=== PATIENT | female | born 1990 | race African-American/Black ===

== ENCOUNTER 2022-08-22 13:12 | Emergency (ER) | payer BC, SELFPAY ==
[2022-08-22 13:19] VITALS: BP 147/78; PULSE 90; RESP 18; TEMP 36.4; O2SAT 96; BMI 43.9
--- NOTE | 2022-08-22 14:54 | ED.EAR ---
HPI - Ear Problem General Time Seen by Provider: 14:54 Date Seen: 08/22/22 Chief complaint: Ear/Nose/Throat Problem Stated complaint: Ear Infections Time Seen by Provider: 08/22/22 14:19 Source: patient, family, RN notes reviewed and old records reviewed Mode of arrival: ambulatory Limitations: no limitations History of Present Illness HPI Narrative: Patient is a very pleasant 31-year-old female who denies who comes to the emergency room with ear pain. Patient had the onset of a cough greater than 5 days ago and then on TuesdayAugust 18 developed ear pain. She thinks that her right ear began hurting 1st and then her left ear. She has not had any fever or chills. She has not had problems with ear infections in the past. She denies vomiting or diarrhea. Occasionally smoke and she is advised to abstain at this point. Again high, her records stated but she states she has had her baby and she is not . She denies any history of antibiotic allergies. She has not taken anything for pain. Movement does not change her pain. Related Data Home Medications Medication Instructions Recorded Confirmed acetaminophen 500 mg oral powder 1,000 mg PO Q8H PRN 01/20/22 08/22/22 packet (Tylenol Extra Strength) albuterol sulfate 90 mcg/actuation 2 puff inhalation Q4-6H PRN 01/20/22 08/22/22 aerosol inhaler (Ventolin HFA) calcium carbonate 500 mg calcium 500 mg PO QID PRN 01/20/22 08/22/22 (1,250 mg) chewable tablet clonidine HCl 0.1 mg tablet 0.1 mg PO BID 01/20/22 08/22/22 melatonin 3 mg capsule 3 mg PO .hs PRN 01/20/22 08/22/22 methadone 10 mg/mL oral concentrate 110 mg PO QDAY 01/20/22 08/22/22 naloxone 4 mg/actuation nasal 4 mg intranasal Q2M PRN 01/20/22 08/22/22 spray (Narcan) Previous Rx's Medication Instructions Recorded ondansetron HCl 8 mg tablet 8 mg PO Q8H PRN nausea and 01/20/22 vomiting #15 tabs penicillin V potassium 500 mg 500 mg PO TID #21 tabs 01/20/22 tablet ascorbic acid (vitamin C) 500 mg 500 mg PO QDAY #90 caps 01/28/22 capsule aspirin 81 mg tablet,delayed 81 mg PO QDAY #90 tabs 01/28/22 release ferrous sulfate 325 mg (65 mg 325 mg PO QDAY #90 tabs 01/28/22 iron) tablet prenat.vits,siddharth,hsh-ofvw-gbipe 1 tab PO QDAY #90 tabs 01/28/22 Allergies Allergy/AdvReac Type Severity Reaction Status Date / Time codeine Allergy Severe Seizure Verified 01/20/22 09:36 hydrocodone Allergy Severe Anaphylaxis Verified 01/20/22 09:36 tramadol Allergy Severe Seizure Verified 01/20/22 09:36 Review of Systems Status of ROS: Reports: 6 or more systems reviewed and unremarkable except as noted in History and below Narrative: Patient denies runny nose. She has no fever or chills. Denies nausea vomiting abdominal pain dysuria hematuria or diarrhea. [facility] Medical History Social History Smoking Status: Never smoker Do you use any of these nicotine containing products: None Second hand tobacco smoke exposure: No How often do you have a drink containing alcohol: never How often do you have six or more drinks on one occasion: Never AUDIT-C Alcohol total score: 0 Non-prescribed substance use: denies use service: No Exam Narrative: Exam Narrative: Patient is alert and oriented. She is sitting in room 3. His significant other family member companies her. Eyes are clear. TMs bilaterally are examine. Right TM is slightly pink but still has a good light reflex and is not bulging. TM on the left however is bulging and light pink. No pain with external manipulation of the ear. Neck is supple without lymphadenopathy. Oral cavity with moist mucous membranes. Heart with regular rate and rhythm. Lungs are clear in all lung loco. Abdomen soft. Lower extremities are moving. Const: Vital Signs, click to edit/add: Vital Signs - 24 hr 08/22/22 13:19 Temperature 97.6 F Pulse Rate [Left P ulse Oximeter] 90 Respiratory Rate 18 Blood Pressure [Ri ght Upper Arm] 147/78 H Pulse Oximetry 96 Oxygen Delivery Me thod Room Air Documenting provider has reviewed patient's vital signs: yes Course Course Hospital Course: At this time we have identified a left otitis media. Would treat with antibiotics. However, patient also has ongoing cough. Will swab her for COVID/influenza/RSV. Vital Signs Vital signs: Initial Vital Signs Temperature 97.6 F 08/22/22 13:19 Temperature Source Temporal Artery Scan 08/22/22 13:19 Pulse Rate 90 08/22/22 13:19 Pulse Rhythm 08/22/22 13:19 Pulse Strength 3+ Normal 08/22/22 13:19 Respiratory Rate 18 08/22/22 13:19 Blood Pressure 147/78 H 08/22/22 13:19 Blood Pressure Mean 101 08/22/22 13:19 Blood Pressure Position Sitting 08/22/22 13:19 Pulse Oximetry 96 08/22/22 13:19 Oxygen Delivery Method 08/22/22 13:19 Vital Signs Temperature 97.6 F 08/22/22 13:19 Pulse Rate 90 08/22/22 13:19 Respiratory Rate 18 08/22/22 13:19 Blood Pressure 147/78 H 08/22/22 13:19 Pulse Oximetry 96 08/22/22 13:19 Oxygen Delivery Method 08/22/22 13:19 Temperature 97.6 F 08/22/22 13:19 Pulse Rate 90 08/22/22 13:19 Respiratory Rate 18 08/22/22 13:19 Blood Pressure 147/78 H 08/22/22 13:19 Pulse Oximetry 96 08/22/22 13:19 Oxygen Delivery Method 08/22/22 13:19 Medical Decision Making MDM Narrative Medical decision making narrative: 1. Left otitis media-patient and significant other states they do not have any money for prescriptions. Will start treatment with amoxicillin 500 mg in the ED followed by 500 mg tablet that we will send home tonight to be taken before bedtime. I have written prescriptions for amoxicillin 875 mg p.o. b.i.d. times 10 days along with a [facility] about your through [facility]. Patient report to [facility] tomorrow which unfortunately is closed today. In addition have written for ibuprofen 600 mg p.o. t.i.d. p.r.n. number 60 tablets with 1 refill as needed. First dose of ibuprofen 600 mg given in the ED. patient feels comfortable with this plan. 2. URI-pending COVID swab 3. Disposition-home at this time. Seek medical attention return for worsening symptoms. Addendum: COVID swab negative. Medical Records Medical records reviewed: Yes I reviewed the patient's medical records Lab Data Lab results reviewed: Yes I reviewed the patient's lab results Labs: Lab Results 08/22/22 Range/Units 15:00 SARS-CoV-2 (PCR) Negative SARS-CoV-2 (Negative) Influenza Type A (PCR) Negative PCR FLU A (Negative) Influenza Type B (PCR) Negative PCR FLU B (Negative) RSV (PCR) Negative PCR RSV (Negative) Discharge Plan Discharge Clinical Impression: Acute left otitis media Patient Disposition: Home, Self-Care Condition: Unchanged Additional Instructions: Amoxicillin as directed for ear infection. First dose in the emergency room and 2nd dose can be taken tonight. We will send a pill home with you. Fill your prescriptions at [facility] tomorrow. This would include the amoxicillin as well. I will call you at home if you have a positive COVID test. Push fluids. Work note for no work today or tomorrow. Return to the emergency room for worsening symptoms. Prescriptions: No Action clonidine HCl 0.1 mg tablet 0.1 mg PO BID methadone 10 mg/mL concentrate 110 mg PO QDAY melatonin 3 mg capsule 3 mg PO .hs PRN albuterol sulfate [Ventolin HFA] 90 mcg/actuation HFA aerosol inhaler 2 puff inhalation Q4-6H PRN naloxone [Narcan] 4 mg/actuation spray,non-aerosol 4 mg intranasal Q2M PRN Rx Instructions: spray 1 dose into ONE nostril; alternate nostrils w each dose until help arrives calcium carbonate 500 mg calcium (1,250 mg) tablet,chewable 500 mg PO QID PRN Tylenol Extra Strength 500 mg powder in packet 1,000 mg PO Q8H PRN penicillin V potassium 500 mg tablet 500 mg PO TID Qty: 21 0RF ondansetron HCl 8 mg tablet 8 mg PO Q8H PRN (Reason: nausea and vomiting) Qty: 15 0RF aspirin 81 mg tablet,delayed release (DR/EC) 81 mg PO QDAY Qty: 90 3RF ferrous sulfate 325 mg (65 mg iron) tablet 325 mg PO QDAY Qty: 90 3RF prenat.vits,siddharth,zon-nult-juftf Tablet 1 tab PO QDAY Qty: 90 3RF ascorbic acid (vitamin C) 500 mg capsule 500 mg PO QDAY Qty: 90 3RF Follow Up/Referrals: Deondre Palacios MD [Primary Care Provider] - Stand Alone Forms: [employer] Info Instructions
[2022-08-22 15:47] LABS: PCR FLU A Negative PCR FLU A (Negative); PCR FLU B Negative PCR FLU B (Negative); PCR RSV Negative PCR RSV (Negative)
[2022-08-22 15:56] LABS: SARS PCR* Negative SARS-CoV-2 (Negative)
--- NOTE | 2022-08-22 15:57 | ED.NURSE ---
Results called to pt
== END 2022-08-22 15:00 | disposition home or self-care (01) ==
PROVIDERS: Emergency Provider Family Medicine; PCP Family Medicine
DX: H66.92 Otitis media, unspecified, left ear (principal)
CPT/HCPCS: 87502; 87634; 87635; 99283

== ENCOUNTER 2023-11-02 11:42 | Outpatient (CLI) | payer BC, SELFPAY ==
--- OUTSIDE RECORDS SUMMARY | 2023-11-02 11:48 | XMS_ITS | Encounter Summary ---
Author Name Unknown Organization [facility] Address [address] [place] [address] Care Team Providers Care Hot Walker Name Role Phone [facility] Primary Care Provider No Ref-Primary, Physician Primary Care Provider Deondre Palacios MD Primary Care Provider [facility] Unavailable Karie Lee [facility] Unavailable [phone] Eliu Jefferson MD Unavailable [phone] DropRosario martinez MD Unavailable [phone] Sara Patel MD Unavailable Florecita Vizcarra MD Unavailable [phone] DropRosario martinez MD Unavailable [phone] Antonieta Rosenberg APRN [facility] Unavailable + Crystal Baron MD Unavailable [phone] Sorin Barreto MD Unavailable Encounter Details Date Type Department Care Team (Late st Contact Info) Description 01/08/2020 MyC Medical Advice [facility] Surgical Weight Management [address] [place] [id number] Alf Smith Social History Tobacco Use Types Packs/Day Years Used Date Smoking Tobacco: Every Day Cigarettes Smokeless Tobacco: Current Comments:1-2 per day with pr egnancy Alcohol Use Standard Drinks/Week Comments No 0 (1 standard drink = 0.6 oz pur e alcohol) Sex and Gender Information Value Date Recorded Sex Assigned at Not on file Gender Identity Female 01/08/2020 12:56 PM CDT Sexual Orientation Not on file COVID-19 Exposure Response Date Recorded In the last month, have you been in contact with someone who was confirmed or suspected to have Coronavirus / COVID-19? 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 documented as of this encounter Care Teams Hot Walker Relationship Specialty Start Date End Date [address] [address] PCP - General 11/28/17 08/16/21 No Ref-Primary, Physician PCP - General 08/17/21 10/19/21 Deondre Palacios MD PCP - General Family Medicine 10/20/[address] [address] 08/17/21 Karie Lee, [facility] [address] [place] [address] Pharmacist Pharmacist 02/18/20 Eliu Jefferson MD [address] [facility] [address] [place] [address] Assigned Surgical Provider 05/09/2008/22/21 Rosario Lozano MD [address] [place] [address] Assigned OBGYN Provider 01/23/22 Sara Patel MD [address] [place] [address] Assigned OBGYN Provider 01/30/22 Florecita Vizcarra MD [address] [place] [address] Assigned OBGYN Provider 02/27/22 Rosario Lozano MD [address] [place] [address] Assigned OBGYN Provider 03/06/2207/08 Antonieta Rosenberg APRN [employer] [address] [place] [address] Assigned PCP 02/17/22 08/27/22 Crystal Baron MD [address] [place] [address] Assigned OBGYN Provider 07/09/23 Sorin Barreto MD [address] [address] Assigned OBGYN Provider 09/09/23 documented as of this encounter
--- OUTSIDE RECORDS SUMMARY | 2023-11-02 11:48 | XMS_ITS | Encounter Summary ---
Author Name Unknown Organization [facility] Address [address] [place] [address] Care Team Providers Care Audit Reviewer Name Role Phone [facility] Primary Care Provider No Ref-Primary, Physician Primary Care Provider Deondre Palacios MD Primary Care Provider [phone] [facility] Unavailable Karie Lee [facility] Unavailable Eliu Jefferson MD Unavailable DropRosario martinez MD Unavailable Sara Patel MD Unavailable Florecita Vizcarra MD Unavailable DropRosario martinez MD Unavailable [phone] Antonieta Rosenberg APRN [facility] Unavailable + Crystal Baron MD Unavailable Sorin Barreto MD Unavailable [phone] Encounter Details Date Type Department Care Team (Late st Contact Info) Description 01/08/2020 MyC Medical Advice [facility] Surgical Weight Management [address] [facility] [address] [place] [address] Tresa Pineda PA-C [address] [facility] [address] [place], [place] [id number] Social History Tobacco Use Types Packs/Day Years [...] Out COVID-19 08/17/2021 08/17/2021 08/17/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 COVID-19 08/17/2021 08/17/2021 09/07/2021 11:3 9 PM CELL MANAGER documented as of this encounter Care Teams Audit Reviewer Relationship Specialty Start Date End Date [address] [address] PCP - General 11/28/17 08/16/21 No Ref-Primary, Physician PCP - General 08/17/21 10/19/21 Deondre Palacios MD PCP - General Family Medicine 10/20/[address] [address] 08/17/21 Karie Lee, [facility] [address] [place] [address] Pharmacist Pharmacist 02/18/20 Eliu Jefferson MD [address] [facility] [address] [place] [address] Assigned Surgical Provider 05/09/2008/22/21 Rosario Lozano MD [address] [place] [address] Assigned OBGYN Provider 01/23/22 Sara Patel MD [address] [place] [address] Assigned OBGYN Provider 01/30/22 Florecita Vizcarra MD [address] [place] [address] Assigned OBGYN Provider 02/27/22 Rosario Lozano MD [address] [place] [address] Assigned OBGYN Provider 03/06/2207/08 Antonieta Rosenberg APRN [facility] [address] [place] [address] Assigned PCP 02/17/22 08/27/22 Crystal Baron MD [address] [place], [place] [address] Assigned OBGYN Provider 07/09/23 Sorin Barreto MD [address] [place] [address] Assigned OBGYN Provider 09/09/23 documented as of this encounter
--- OUTSIDE RECORDS SUMMARY | 2023-11-02 11:48 | XMS_ITS | Clinical Summary ---
Author Name Unknown Organization [facility] Address [address] [place] [address] Care Team Providers Care Amusement Equipment Operator Name Role Phone Deondre Palacios MD Primary Care Provider [phone] [facility] Unavailable [phone] Karie Lee [facility] Unavailable [phone] Allergies Active Allergy Reactions Criticality Noted Date Comments Codeine Anaphylaxis High 11/28/2017 Ibuprofen 06/25/2015 hives Tramadol Other (See Comments) 11/01/2014 Tramadol Unknown 11/13/2014 seizures Medications Medication Sig Dispensed Refills Start Date End Date Status albuterol (PROAIR HFA;PROVENTIL HFA;VENTOLIN HFA) 90 mcg/actuation inhaler [ALBUTEROL (PROAIR HFA;PROVENTIL HFA;VENTOLIN HFA) 90 MCG/ACTUATION INHALER] Inhale 1-2 puffs every 6 (six) hours as needed for wheezing. 1 Inhaler 0 07/20/2017 Active vitamin C (ASCORBIC ACID) 500 MG tablet Take 500 mg by mouth every evening 12/22/2021 Active SM ANTACID 500 MG chewable tablet Take 1-2 chew tab by mouth daily as needed 12/22/2021 Active FEROSUL 325 (65 Fe) MG tablet Take 325 mg by mouth every evening 12/22/2021 Active hydrOXYzine (VISTARIL) 25 MG capsule Take 25 mg by mouth 3 times daily as needed for anxiety 12/22/2021 Active Vit-Fe Fumarate-FA ( VITAMIN PLUS LOW IRON) 27-1 MG TABS Take 1 tablet by mouth every evening 12/22/2021 Active SENNA-TIME 8.6 MG tablet Take 1 tablet by mouth daily as needed 12/22/2021 Active cholecalciferol 25 MCG (1000 UT) TABS Take 25 mcg by mouth every evening 11/18/2021 Active cloNIDine (CATAPRES) 0.1 MG tablet Take 0.1 mg by mouth 2 times daily as needed (anxiety) 12/29/2021 Active melatonin 3 MG CAPS Take 3 mg by mouth nightly as needed 12/25/2021 Active methadone (DOLOPHINE-INTENSOL ) 10 MG/ML (HIGH CONC) solution Take 130 mg by mouth daily 12/28/2021 Active naloxone (NARCAN) 4 MG/0.1ML nasal spray As Needed 04/28/2020 Active gabapentin (NEURONTIN) 100 MG capsuleIndications: delivery delivered Take 1 capsule (100 mg) by mouth 3 times daily for 15 days 45 capsule 03/28/2022 Active acetaminophen (TYLENOL) 325 MG tabletIndications:C esarean delivery delivered Take 2 tablets (650 mg) by mouth every 6 hours as needed for mild pain Start after Delivery. 100 tablet 03/28/2022 Active senna-docusate (SENOKOT-S/PERICOLA CE) 8.6-50 MG tabletIndications:C esarean delivery delivered Take 1 tablet by mouth daily Start after delivery. 100 tablet 03/28/2022 Active Lidocaine (LIDOCARE) 4 % PatchIndications:Ce sarean delivery delivered Place 2 patches onto the skin every 24 hours To prevent lidocaine toxicity, patient should be patch free for 12 hrs daily. 14 patch 1 03/28/2022 Active calcium carbonate 500 mg, elemental, 1250 (500 Ca) MG tablet chewable Take 500 mg by mouth 12/22/2021 Active albuterol (PROAIR HFA/PROVENTIL HFA/VENTOLIN HFA) 108 (90 Base) MCG/ACT inhaler Inhale 2 puffs into the lungs 12/22/2021 Active calcium carbonate (TUMS) 500 MG chewable tablet Four Times Daily as needed Active ferrous sulfate (FEROSUL) 325 (65 Fe) MG tablet Daily 12/23/2021 Active hydrOXYzine (VISTARIL) 25 MG capsule Take 25 mg by mouth 12/22/2021 Active Vit-Fe Fumarate-FA ( VITAMINS) 28-0.8 MG TABS 02/01/2022 Active Vit-Fe Fumarate-FA (TRINATAL RX 1) 60-1 MG TABS Take 1 tablet by mouth daily Active senna (SENOKOT) 8.6 MG tablet Take 8.6-17.2 mg by mouth 12/22/2021 Active Active Problems Problem Noted Date Diagnosed Date delivery delivered 03/24/2022 Pain, dental 07/29/2014 Hypokalemia 04/09/2014 URI (upper respiratory infection) 04/09/2014 Financial difficulty 04/09/2014 Asthma exacerbation 04/08/2014 Resolved Problems Problem Noted Date Diagnosed Date Resolved Date care, subsequent 12/22/2017 02/10/2022 Encounter for triage in patient 11/28/2017 02/10/2022 Immunizations Name Administration Dates Next Due DTAP (<7y) 03/20/1997 Dtap, 5 Pertussis Antigens (DAPTACEL) ,05/01/1992,05/01/1992,02/20,1991 Flu 65+ Years 04/11/2012, 2,04/17/2011,04/07,04/15/2009,05/22/2008,06/14/2007 Flu, Unspecified 03/18/2012,02/16/2012 HIB (PRP-T) 02/21/1992,1991 HIB(PRP-OMP)(PedvaxHIB) 02/21/1992,1991 HIB, Unspecified 02/21/1992,1991 HPV Quadrivalent 06/14/2007,02/13/2007, 7 HPV9 06/14/2007,02/13/2007,12/09/2006 Hepatitis B, Adult 05/22/2008, 5,03/13/2004,03/20 Hepatitis B, Peds 05/22/2008, 5,03/13/2004,03/20 Historical DTP/aP 03/20/1997, 2,02/21/1992,10/21 Influenza (IIV3) PF 04/11/2012, 2,04/17/2011,04/07,04/15/2009,05/22/2008,06/14/2007 Influenza Vaccine >6 months,quad, PF ,04/09/2014,04/09/2014,04/11,03/18/2012,02/16/2012,09/09/2011 ,04/17/2011,04/07/2010,04/15/2009,11/2007,06/14/2007 Influenza, seasonal, injectable, PF 04/07/2010 MMR 03/13/2004,01/20/1993 Meningococcal (Menomune??) 05/22/2008 Meningococcal ACWY (Menactra??) 05/22/2008 Meningococcal,unspecified 05/22/2008 OPV, trivalent, live 03/20/1997 Pneumococcal 23 valent 04/09/2014,04/09/2014 Poliovirus, inactivated (IPV) 03/20/1997, 992,1991 TDAP (Adacel,Boostrix) 11/03/2021,02/01/2018,09/2009 Td (Adult), Adsorbed 03/13/2004 Family History Medical History Relation Comments Hypertension Father Alcoholism Maternal Grandfather Cirrhosis Maternal Grandfather Hypertension Mother Ovarian Cancer Other Substance Abuse Paternal Grandfather drugs Breast Cancer No family hx of Relation Status Comments Brother 1 Alive Brother 2 Alive Father Alive Maternal Grandfather Maternal Grandmother Alive Mother Alive Other Alive Paternal Grandfather Paternal Grandmother Sister Alive Son Alive Social History Tobacco Use Types Packs/Day Years Used Date Smoking Tobacco: Former Smokeless Tobacco: Never Snuff Tobacco Cessation:Ready to Q uit: No; Counseling Given: Yes Comments:last tabacco use- a few days ago Alcohol Use Standard Drinks/Week Comments Not Currently 0 (1 standard drink = 0.6 oz pur e alcohol) PHQ-2 Answer Date Recorded PHQ-2 Score 0 03/16/2022 [place] Depression Scale Answer Date Recorded Last EPDS Total Score Not on file 03/28/2022 The thought of harming myself has occurred to me . Never 03/28/2022 Adolescent Education Answer Date Record ed Getting School Help Needed Not on file 05/03 Sex and Gender Information Value Date Recorded Sex Assigned at Not on file Gender Identity Female 01/08/2020 12:56 PM CDT Sexual Orientation Not on file Last Filed Vital Signs Vital Sign Reading Time Taken Comments Blood Pressure 113/62 03/28/2022 7:54 AM CDT Pulse 82 03/28/2022 7:54 AM CDT Temperature 37.1 ??C (98.7 ??F) 03/28/2022 7:54 AM CD T Respiratory Rate 18 03/28/2022 7:54 AM CDT Oxygen Saturation 97% 03/28/2022 7:54 AM CDT Inhaled Oxygen Concentration - - Weight 125.2 kg (276 lb) 03/24/2022 2:03 PM CDT Height 157.5 cm (5' 2) 03/24/2022 2:03 PM CDT Body Mass Index 50.48 03/24/2022 2:03 PM CDT Plan of Treatment Health Maintenance Due Date Last Done Comments ADVANCE CARE PLANNING 1991 ANNUAL REVIEW OF HM ORDERS 1991 ASTHMA ACTION PLAN 1991 ASTHMA CONTROL TEST 1991 YEARLY PREVENTIVE VISIT 08/20/2010 08/20/19 10, 05/22/2008, 06/14/2007, Additional history exists Pneumococcal Vaccine: Pediatrics (0 to 5 Years) and At-Risk Patients (6 to 64 Years) (2 of 2 - PCV) 04/09/2015 04/09/2014, 04/09/2014 COVID-19 Vaccine ( season) 2023 INFLUENZA VACCINE (#1) 2023 9, 04/09/2014, 04/09/2014, Additional history exists PHQ-2 (once per calendar year) 2023 03/16/2022, 03/02/2022, 01/07/2022, Additional history exists PAP 11/12/2024 11/12/2021, 10/17, 10/25/2017 DTAP/TDAP/TD IMMUNIZATION (8 - Td or Tdap) 11/04/2031 11/03/2021, 02/01/2018, 08/20/2009, Additional history exists IPV IMMUNIZATION Completed 03/20/1997, 09/1996, 02/21/1992, Additional history exists HPV IMMUNIZATION Completed 06/14/2007, , 02/13/2007, Additional history exists HEPATITIS B IMMUNIZATION Completed 008, 05/22/2008, 10/05/2004, Additional history exists MENINGITIS IMMUNIZATION Completed 05/22/20 08, 05/22/2008, 05/22/2008 HEPATITIS C SCREENING Addressed 10/23/2021 Overri dden with the intention of not completing the topic HIV SCREENING Completed 01/07/2022, 09/03/2017 RSV MONOCLONAL ANTIBODY Aged Out No l onger eligible based on patient's age to complete this topic Procedures Procedure Name Priority Date/Time Associated Diagnosis Comments HIV ANTIGEN ANTIBODY COMBO Routine 01/07/2022 11:04 AM CDT Encounter for supervision of high risk young multigravida, antepartum HCL PAP SMEAR Routine 12/10/1998 1:18 PM CDT Gynecologic Examination from Last 3 Months or Most Recently Relevant to Health Maintenance Results * HIV Antigen Antibody Combo (01/07/2022 11:04 AM CDT) HIV Antigen Antibody Combo Nonreactive Nonreactive 01/07/2022 6:19 PM CDT [facility] DO Comment:HIV-1 p24 Ag & HIV-1 /HIV-2 Ab Not Detected Blood STRUCTURE OF RIGHT UPPER LIMB / Unknown Venipuncture / Unknown 01/07/2022 11:04 AM CDT 01/07/2022 11:05 AM CDT Rosario Lozano MD LAB - BLOOD ORDERAB LES [facility]ENDO [facility]Endo [address] [facility] [address] Building, Room [address] [place], [place] [address] [phone] * PAP SMEAR (12/10/1998 1:18 PM CDT) Unlabelled DNR [facility] Biopsy Sent DNR [facility] Source VAG,CERV,E NDOCERV [facility] LMP POST [facility] PARA 3 [facility] 2 [facility] Clinical History DNR [facility] Therapy DNR [facility] Last Pap Diagnosis WITHIN NORMAL LIMITS [facility] PAP Date [id number] [facility] Specimen # DNR [facility] Tissue DNR [facility] Tissue Date DNR [facility] Statement of Adequacy [facility] Comment: SATISFACTORY FOR INTERPRETATION POST MENOPAUSAL PATIENT. ??NO ENDOCERVICAL CELLS SEEN. General Categorization DNR [facility] Descriptive Diagnosis [facility] Comment: WITHIN NORMAL LIMITS ATROPHIC CELL PATTERN Recommendations DNR [facility] DNR 114,,,,,, [facility] DNR DNR [facility] DNR DNR [facility] DNR DNR [facility] . [facility] Comment: ?PAP SMEARS ARE SUBJECT TO BOTH FALSE NEGATIVE AND FALSE ? POSITIVE RESULTS EVIDENCED BY DATA PUBLISHED IN THE ? MEDICAL LITERATURE. ??YOUR PATIENT'S RESULT SHOULD BE ? INTERPRETED IN THIS CONTEXT, TOGETHER WITH THE PATIENT'S ? HISTORY AND CLINICAL FINDINGS. TESTING LOCATION ? THIS TEST WAS PERFORMED AT [facility] ? [address] [place] [address]. [phone] ? PHONE NUMBERS FOR CYTOLOGY INQUIRES, INCLUDING SLIDE REQUESTS ? EXT. [id number] ?? EXT. [id number] 12/08/1998 Marita Dover MD LABORATORY [facility] from Last 3 Months or Most Recently Relevant to Health Maintenance Advance Directives For more information, please contact: [phone] * Full Code (Latest Code Status on File) Date Activated Date Inactivated Comments 03/24/2022 8:45 PM 03/28/2022 4:52 PM All basic and advanced life-sustaining interventions are performed as appropriate Question Answer Comments Code status determined by: Discussion with niraj nt/ legal decision maker Care Teams Amusement Equipment Operator Relationship Specialty Start Date End Date Deondre Palacios MD PCP - General Family Medicine 10/20/[address] [address] 08/17/21 Karie Lee [facility] [address] [place] [address] Pharmacist Pharmacist 02/18/20
--- OUTSIDE RECORDS SUMMARY | 2023-11-02 11:48 | XMS_ITS | Encounter Summary ---
Author Name Unknown Organization [facility] Address [address] [place] [address] Care Team Providers Care Planer Operator / Grader Name Role Phone [facility] Primary Care Provider No Ref-Primary, Physician Primary Care Provider Deondre Palacios MD Primary Care Provider [phone] [facility] Unavailable Karie Lee [facility] Unavailable [phone] Eliu Jefferson MD Unavailable DropRosario martinez MD Unavailable Sara Patel MD Unavailable Florecita Vizcarra MD Unavailable DropRosario martinez MD Unavailable [phone] Antonieta Rosenberg APRN [facility] Unavailable + Crystal Baron MD Unavailable [phone] Sorin Barreto MD Unavailable Encounter Details Date Type Department Care Team (Late st Contact Info) Description 01/09/2020 MyC Medical Advice [facility] Surgical Weight Management [address] [facility] [address] 4th [place] [address] Tresa Pineda PA-C [address] [facility] [address] [place], [place] [id number] Social History Tobacco Use Types Packs/Day Years [...] Out COVID-19 08/17/2021 08/17/2021 08/17/2021 8: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 SOLAR 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 COVID-19 08/17/2021 08/17/2021 09/07/2021 11:3 9 PM SOLAR 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 documented as of this encounter Care Teams Planer Operator / Grader Relationship Specialty Start Date End Date [address] [address] PCP - General 11/28/17 08/16/21 No Ref-Primary, Physician PCP - General 08/17/21 10/19/21 Deondre Palacios MD PCP - General Family Medicine 10/20/[address] [address] 08/17/21 Karie Lee, [facility] [address] [place] [address] Pharmacist Pharmacist 02/18/20 Eliu Jefferson MD [address] [facility] [address] [place] [address] Assigned Surgical Provider 05/09/2008/22/21 Rosario Lozano MD [address] [place] [address] Assigned OBGYN Provider 01/23/22 Sara Patel MD [address] [place] [address] Assigned OBGYN Provider 01/30/22 Florecita Vizcarra MD [address] [place] [address] Assigned OBGYN Provider 02/27/22 Rosario Lozano MD [address] [place] [address] Assigned OBGYN Provider 03/06/2207/08 Antonieta Rosenberg APRN [facility] [address] [place] [address] Assigned PCP 02/17/22 08/27/22 Crystal Baron MD [address] [place], [place] [address] Assigned OBGYN Provider 07/09/23 Sorin Barreto MD [address] [place] [address] Assigned OBGYN Provider 09/09/23 documented as of this encounter
--- OUTSIDE RECORDS SUMMARY | 2023-11-02 11:48 | XMS_ITS | Encounter Summary ---
Author Name Unknown Organization [facility] Address [address] [place] [address] Care Team Providers Care Analytical Consultant Name Role Phone System, Provider Not In Primary Care Provider Un available [facility] Primary Care Provider No Ref-Primary, Physician Primary Care Provider Deondre Palacios MD Primary Care Provider [facility] Unavailable [phone] Karie Lee [facility] Unavailable [phone] Eliu Jefferson MD Unavailable [phone] DropRosario martinez MD Unavailable Sara Patel MD Unavailable Florecita Vizcarra MD Unavailable Rosario Lozano MD Unavailable Antonieta Rosenberg APRN [facility] Unavailable + Crystal Baron MD Unavailable [phone] Sorin Barreto MD Unavailable [phone] Reason for Referral * - Closed Specialty Diagnoses / Procedures Referred By Salomón vasquez Referred To Contact Diagnoses related condition, antepartum Ayah Naheed [place] [id number] [place] [address] Referral ID Status Reason Start Date Expiration Date Visits Re quested Visits Authorized [id number] Closed 10/26/2017 10/26/2018 1 1 Question Answer MFM Location [place] [facility] 03/24/2018 Ultrasound Comprehensive US (>than 18 weeks GA) US PROC NONE MFM Issue Maternal Medical Condition (enter details in Comments) MFM Consultation (unrelated to Ultrasound findings) Yes (enter details in Comments) - Obesity BMI 50.6, hx asthma, hx migraines, hx meth abuse-transfer of care Genetic Counseling Consultation: No fax [facility] Naheed Poon [phone] Comments >> Patient may proceed with recommendations for further testing as directed by the Maternal Medicine Specialist >> >> If requesting Echo: MFM will determine appropriate location for exam due to indication. >> If requesting Lung Maturity Amnio: If results indicate lung maturity, induction or C/S is recommended within 36 hours. Please schedule accordingly. Dear Patient: Please be aware that coverage of these services is subject to the terms and limitations of your health insurance plan. Call member services at your health plan with any benefit or coverage questions. Please bring the following to your appointment: >> Any x-rays, CTs or MRIs which have been performed. Contact the facility where they were done to arrange for machine operator hop picker prior to your scheduled appointment. Any new CT, MRI or other procedures ordered by your specialist must be performed at a [facility] or coordinated by your clinic's referral office. >> List of current medications >> This referral request >> Any documents/labs given to you for this referral Encounter Details Date Type Department Care Team (Late st Contact Info) Description 10/26/2017 Orders Only [facility] [place] [address] [place] [address] José MiguelbookerbradOctober [facility] [address] [place] [address] related condition, antepartum (Primary Dx) Social History Tobacco Use Types Packs/Day Years Used Date Smoking Tobacco: Never Assessed Sex and Gender Information Value Date Recorded Sex Assigned at Not on file Gender Identity Female 01/08/2020 12:56 PM CDT Sexual Orientation Not on file documented as of this encounter Plan of Treatment Scheduled Referrals Name Type Priority Associated Diagnoses Orde r Schedule [facility] REFERRAL- Referral Routine related condition, antepartum 1 Occurrences starting 10/26/2017 until 04/24/2018 documented as of this encounter Visit Diagnoses Diagnosis related condition, antepartum- Primary documented in this encounter Additional Health Concerns Infection Onset Date Last Indicated Resolved Time Rule Out COVID-19 08/17/2021 08/17/2021 08/17/2021 8:20 AM TREE AND SHRUB WORKER COVID-19 08/17/2021 08/17/2021 09/07/2021 11:3 9 PM TREE AND SHRUB WORKER documented as of this encounter Care Teams Analytical Consultant Relationship Specialty Start Date End Date System, Provider Not In PCP - General Clinic 09/02/17 11/27/[address] [address] PCP - General 11/28/17 08/16/21 No Ref-Primary, Physician PCP - General 08/17/21 10/19/21 Deondre Palacios MD PCP - General Family Medicine 10/20/[address] [address] 08/17/21 Karie Lee [facility] [address] [place] [address] Pharmacist Pharmacist 02/18/20 Eliu Jefferson MD [address] [place] [address] [facility] [address] [place] [address] Assigned Surgical Provider 05/09/2008/22/21 Rosario Lozano MD [address] [place] [address] Assigned OBGYN Provider 01/23/22 Sara Patel MD [address] [place] [address] Assigned OBGYN Provider 01/30/22 Florecita Vizcarra MD [address] [place] [address] Assigned OBGYN Provider 02/27/22 Rosario Lozano MD [address] [place] [address] Assigned OBGYN Provider 03/06/2207/08 Antonieta Rosenberg APRN [facility] [address] [place] [address] Assigned PCP 02/17/22 08/27/22 Crystal Baron MD [address] [place] [address] Assigned OBGYN Provider 07/09/23 Sorin Barreto MD [address] [address] Assigned OBGYN Provider 09/09/23 documented as of this encounter
--- OUTSIDE RECORDS SUMMARY | 2023-11-02 11:48 | XMS_ITS | Encounter Summary ---
Author Name Unknown Organization [facility] Address [address] [place] [address] Care Team Providers Care Division Operations Manager Name Role Phone [facility] Primary Care Provider No Ref-Primary, Physician Primary Care Provider Deondre Palacios MD Primary Care Provider [phone] [facility] Unavailable Karie Lee [facility] Unavailable [phone] Eliu Jefferson MD Unavailable DropRosario martinez MD Unavailable Sara Patel MD Unavailable Florecita Vizcarra MD Unavailable DropRosario martinez MD Unavailable [phone] Antonieta Rosenberg APRN [facility] Unavailable + Crystal Baron MD Unavailable [phone] Sorin Barreto MD Unavailable Encounter Details Date Type Department Care Team (Late st Contact Info) Description 01/07/2020 MyC Medical Advice [facility] Medical Weight Management [address] [place] [phone] Erendira Carter CMA Social History Tobacco Use Types Packs/Day Years [...] Out COVID-19 08/17/2021 08/17/2021 08/17/2021 8:20 AM GOLD MARKER COVID-19 08/17/2021 08/17/2021 09/07/2021 11:3 9 PM GOLD MARKER documented as of this encounter Care Teams Division Operations Manager Relationship Specialty Start Date End Date [address] [address] PCP - General 11/28/17 08/16/21 No Ref-Primary, Physician PCP - General 08/17/21 10/19/21 Deondre Palacios MD PCP - General Family Medicine 10/20/[address] [address] 08/17/21 Karie Lee [facility] [address] [place] [address] Pharmacist Pharmacist 02/18/20 Eliu Jefferson MD [address] [facility] [address] [place] [address] Assigned Surgical Provider 05/09/2008/22/21 Rosario Lozano MD [address] [place] [address] Assigned OBGYN Provider 01/23/22 Sara Patel MD [address] [place] [address] Assigned OBGYN Provider 01/30/22 Florecita Vizcarra MD [address] [place] [address] Assigned OBGYN Provider 02/27/22 Rosario Lozano MD [address] [place] [address] Assigned OBGYN Provider 03/06/2207/08 Antonieta Rosenberg APRN TRAFF[employer] SUPERVIS[employer] [address] [place] [address] Assigned PCP 02/17/22 08/27/22 Crystal Baron MD [address] [place] [address] Assigned OBGYN Provider 07/09/23 Sorin Barreto MD [address] [address] Assigned OBGYN Provider 09/09/23 documented as of this encounter
--- OUTSIDE RECORDS SUMMARY | 2023-11-02 11:48 | XMS_ITS | Encounter Summary ---
Author Name Unknown Organization [facility] Address [address] [place] [address] Care Team Providers Care Garnishment Specialist Name Role Phone [facility] Primary Care Provider No Ref-Primary, Physician Primary Care Provider Deondre Palacios MD Primary Care Provider [phone] [facility] Unavailable Karie Lee [facility] Unavailable [phone] Eliu Jefferson MD Unavailable DropRosario martinez MD Unavailable Sara Patel MD Unavailable Florecita Vizcarra MD Unavailable DropRosario martinez MD Unavailable [phone] Antonieta Rosenberg APRN [facility] Unavailable + Crystal Baron MD Unavailable [phone] Sorin Barreto MD Unavailable Encounter Details Date Type Department Care Team (Late st Contact Info) Description 01/09/2020 MyC Medical Advice [facility] Medical Weight Management [address] [place] [phone] Aleida Ribeiro Social History Tobacco Use Types Packs/Day Years [...] Out COVID-19 08/17/2021 08/17/2021 08/17/2021 8:20 AM FIELD ASSESSOR COVID-19 08/17/2021 08/17/2021 09/07/2021 11:3 9 PM FIELD ASSESSOR documented as of this encounter Care Teams Garnishment Specialist Relationship Specialty Start Date End Date [address] [address] PCP - General 11/28/17 08/16/21 No Ref-Primary, Physician PCP - General 08/17/21 10/19/21 Deondre Palacios MD PCP - General Family Medicine 10/20/[address] [address] 08/17/21 Karie Lee, [facility] [address] [place] [address] Pharmacist Pharmacist 02/18/20 Eliu Jefferson MD [address] [facility] [address] [place] [address] Assigned Surgical Provider 05/09/2008/22/21 Rosario Lozano MD [address] [place] [address] Assigned OBGYN Provider 01/23/22 Sara Patel MD [address] [place] [address] Assigned OBGYN Provider 01/30/22 Florecita Vizcarra MD [address] [place] [address] Assigned OBGYN Provider 02/27/22 Rosario Lozano MD [address] [place] [address] Assigned OBGYN Provider 03/06/2207/08 Antonieta Rosenberg APRN [facility] [address] [place] [address] Assigned PCP 02/17/22 08/27/22 Crystal Baron MD [address] [place] [address] Assigned OBGYN Provider 07/09/23 Sorin Barreto MD [address] [address] Assigned OBGYN Provider 09/09/23 documented as of this encounter
--- OUTSIDE RECORDS SUMMARY | 2023-11-02 11:48 | XMS_ITS | Encounter Summary ---
Author Name Unknown Organization [place] Address [address] [place] [address] Care Team Providers Care Administrative Assistant Name Role Phone System, Provider Not In Primary Care Provider Un available [facility] Primary Care Provider No Ref-Primary, Physician Primary Care Provider Deondre Palacios MD Primary Care Provider [facility] Unavailable Karie Lee [facility] Unavailable Eliu Jefferson MD Unavailable [phone] DropRosario martinez MD Unavailable Sara Patel MD Unavailable Florecita Vizcarra MD Unavailable Rosario Lozano MD Unavailable [phone] Antonieta Rosenberg APRN [facility] Unavailable + Crystal Baron MD Unavailable [phone] Sorin Barreto MD Unavailable [phone] Reason for Referral * - Closed Specialty Diagnoses / Procedures Referred By Salomón vasquez Referred To Contact Diagnoses Morbid obesity (H) History of methamphetamine abuse (H) Asthma Migraine [facility] [address] [place] [address] Referral ID Status Reason Start Date Expiration Date Visits Re quested Visits Authorized [id number] Closed 10/27/2017 10/27/2018 1 1 Question Answer MFM Consult Yes Comments Level 2 U/S and MFM consult in consult clinic Encounter Details Date Type Department Care Team (Late st Contact Info) Description 10/27/2017 Orders Only [facility] Maternal Medicine [facility] [address] [place] [address] Sara Padron RN Morbid obesity (H) (Primary Dx); History of methamphetamine abuse (H); Asthma; Migraine Social History Tobacco Use Types Packs/Day Years Used Date Smoking Tobacco: Never Assessed Sex and Gender Information Value Date Recorded Sex Assigned at Not on file Gender Identity Female 01/08/2020 12:56 PM CDT Sexual Orientation Not on file documented as of this encounter Plan of Treatment Scheduled Referrals Name Type Priority Associated Diagnoses Orde r Schedule MFM Office Visit Referral Routine Morbid obesity (H) History of methamphetamine abuse (H) Asthma Migraine Weekly for 1 Occurrences starting 10/27/2017 until 10/27/2018 documented as of this encounter Visit Diagnoses Diagnosis Morbid obesity (H)- Primary Morbid obesity 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, in remission Asthma Unspecified asthma Migraine Migraine, unspecified, without mention of intractable migraine without mention of status migrainosus documented in this encounter Additional Health Concerns Infection Onset Date Last Indicated Resolved Time Rule Out COVID-19 08/17/2021 08/17/2021 08/17/2021 8:20 AM PHARMACY INFORMATICIST COVID-19 08/17/2021 08/17/2021 09/07/2021 11:3 9 PM PHARMACY INFORMATICIST documented as of this encounter Care Teams Administrative Assistant Relationship Specialty Start Date End Date System, Provider Not In PCP - General Clinic 09/02/17 11/27/17 [facility], [facility] [address] [place] [address] PCP - General 11/28/17 08/16/21 No Ref-Primary, Physician PCP - General 08/17/21 10/19/21 Deondre Palacios MD PCP - General Family Medicine 10/20/21 [facility], [facility] [address] [place] [address] 08/17/21 Karie Lee, [facility] [address] [place], [place] [address] Pharmacist Pharmacist 02/18/20 Eliu Jefferson MD 420 [facility] 195 [place], [place] [address] Assigned Surgical Provider 05/09/2008/22/21 Rosario Lozano MD [address] [place], [place] [address] Assigned OBGYN Provider 01/23/22 Sara Patel MD [address] [place], [place] [address] Assigned OBGYN Provider 01/30/22 Florecita Vizcarra MD [address] [place], [place] [address] Assigned OBGYN Provider 02/27/22 Rosario Lozano MD [address] [place], [place] [address]20[address] Assigned OBGYN Provider 03/06/2207/08 Antonieta Rosenberg APRN [facility] [address] [place] [address] Assigned PCP 02/17/22 08/27/22 Crystal Baron MD [address] [place], [place] [address] Assigned OBGYN Provider 07/09/23 Sorin Barreto MD [address] [place] [address] Assigned OBGYN Provider 09/09/23 documented as of this encounter
--- OUTSIDE RECORDS SUMMARY | 2023-11-02 11:48 | XMS_ITS | Encounter Summary ---
Author Name Unknown Organization [place] Address [address] [place] [address] Care Team Providers Care Human Intelligence Name Role Phone [facility] Primary Care Provider No Ref-Primary, Physician Primary Care Provider Deondre Palacios MD Primary Care Provider [facility] Unavailable Karie Lee [facility] Unavailable Eliu Jefferson MD Unavailable [phone] DropRosario martinez MD Unavailable Sara Patel MD Unavailable Florecita Vizcarra MD Unavailable [phone] DropRosario martinez MD Unavailable [phone] Antonieta Rosenberg APRN [facility] Unavailable + Crystal Baron MD Unavailable [phone] Sorin Barreto MD Unavailable [phone] Encounter Details Date Type Department Care Team (Late st Contact Info) Description 01/08/2020 MyC Medical Advice [facility] Surgical Weight Management [address] [facility] [address] 4th [place] [address] Tresa Pineda PA-C [address] [facility] 195 [place], [place] [address] Social History Tobacco Use Types Packs/Day Years [...] Out COVID-19 08/17/2021 08/17/2021 08/17/2021 8:20 AM ELECTRICAL ENGINEERING PROFESSOR COVID-19 08/17/2021 08/17/2021 09/07/2021 11:3 9 PM ELECTRICAL ENGINEERING PROFESSOR documented as of this encounter Care Teams Human Intelligence Relationship Specialty Start Date End Date [address] [address] PCP - General 11/28/17 08/16/21 No Ref-Primary, Physician PCP - General 08/17/21 10/19/21 Deondre Palacios MD PCP - General Family Medicine 10/20/[address] [address] 08/17/21 Karie Lee, [facility] [address] [place] [address] Pharmacist Pharmacist 02/18/20 Eliu Jefferson MD 420 [facility] 195 [place] [address] Assigned Surgical Provider 05/09/2008/22/21 Rosario Lozano MD [address] [place] [address] Assigned OBGYN Provider 01/23/22 Sara Patel MD [address] [place] [address] Assigned OBGYN Provider 01/30/22 Florecita Vizcarra MD [address] [place] [address] Assigned OBGYN Provider 02/27/22 Rosario Lozano MD [address] [place] [address] Assigned OBGYN Provider 03/06/2207/08 Antonieta Rosenberg APRN [facility] [address] [place] [address] Assigned PCP 02/17/22 08/27/22 Crystal Baron MD [address] [place], [place] [address] Assigned OBGYN Provider 07/09/23 Sorin Barreto MD [address] [place] [address] Assigned OBGYN Provider 09/09/23 documented as of this encounter
--- OUTSIDE RECORDS SUMMARY | 2023-11-02 11:48 | XMS_ITS | Referral Summary ---
Author Name Unknown Organization [place] Address [address] [place] [address] Care Team Providers Care Foot Gatherer Name Role Phone Deondre Palacios MD Primary Care Provider [facility] Unavailable [phone] Karie Lee [facility] Unavailable [phone] Allergies Active Allergy Reactions Criticality Noted Date [...] TDAP (Adacel,Boostrix) 11/03/2021,02/01/2018,09/2009 Td (Adult), Adsorbed 03/13/2004 Social History Tobacco Use Types Packs/Day Years Used Date Smoking Tobacco: Former Smokeless Tobacco: Never Snuff Tobacco Cessation:Ready to Q uit: No; Counseling Given: Yes Comments:last tabacco use- a few days ago Alcohol Use Standard Drinks/Week Comments Not Currently 0 (1 standard drink = 0.6 oz pur e alcohol) PHQ-2 Answer Date Recorded PHQ-2 Score 0 03/16/2022 [place]wood Depression Scale Answer Date Recorded Last EPDS [...] 03/24/2022 2:03 PM CDT Plan of Treatment Not on file Procedures Procedure Name Priority Date/Time Associated Diagnosis [...] [facility] CORE/PROT/ENDO [facility] Core/Prot/Endo [address], Room [address] [place] [address] * PAP SMEAR (12/10/1998 1:18 PM CDT) Unlabelled DNR [facility] Biopsy Sent DNR [facility] Source VAG,CERV,E NDOCERV [facility] LMP POST [facility] PARA 3 [facility] 2 [facility] Clinical History DNR [facility] Therapy DNR [facility] Last Pap Diagnosis WITHIN NORMAL LIMITS [facility] PAP Date [id number] [facility] Specimen # DNR [facility] Tissue DNR [facility] Tissue Date DNR [facility] Statement of Adequacy [facility] Comment: SATISFACTORY FOR INTERPRETATION POST MENOPAUSAL PATIENT. ??NO ENDOCERVICAL CELLS SEEN. General Categorization DNR [facility] Descriptive Diagnosis [facility] Comment: WITHIN NORMAL LIMITS ATROPHIC CELL PATTERN Recommendations DNR [facility] DNR 114,,,,,, [facility] DNR DNR [facility] DNR DNR [facility] DNR DNR [facility] . [facility] Comment: ?PAP SMEARS ARE SUBJECT TO BOTH FALSE NEGATIVE AND FALSE ? POSITIVE RESULTS EVIDENCED BY DATA PUBLISHED IN THE ? MEDICAL LITERATURE. ??YOUR PATIENT'S RESULT SHOULD BE ? INTERPRETED IN THIS CONTEXT, TOGETHER WITH THE PATIENT'S ? HISTORY AND CLINICAL FINDINGS. TESTING LOCATION ? THIS TEST WAS PERFORMED AT [facility] ? [address] [place] [address]. [address] ? PHONE NUMBERS FOR CYTOLOGY INQUIRES, INCLUDING SLIDE REQUESTS ? EXT. [id number] ?? EXT. [id number] 12/08/1998 Marita oDver MD LABORATORY [facility] from Last 3 Months or Most Recently Relevant to Health Maintenance Advance Directives For more information, please contact: [phone] * Full Code (Latest Code Status on File) Date Activated Date Inactivated Comments 03/24/2022 8:45 PM 03/28/2022 4:52 PM All basic and advanced life-sustaining interventions are performed as appropriate Question Answer Comments Code status determined by: Discussion with niraj nt/ legal decision maker Care Teams Foot Gatherer Relationship Specialty Start Date End Date Deondre Palaicos MD PCP - General Family Medicine 10/20/[address] [address] 08/17/21 Karie Lee [facility] [address] [place] [address] Pharmacist Pharmacist 02/18/20
--- OUTSIDE RECORDS SUMMARY | 2023-11-02 11:48 | XMS_ITS | Encounter Summary ---
Author Name Unknown Organization [place] Address [address] [place] [address] Care Team Providers Care Artillery Maintenance Supervisor Name Role Phone [facility] Primary Care Provider No Ref-Primary, Physician Primary Care Provider Deondre Palacios MD Primary Care Provider [facility] Unavailable Karie Lee [facility] Unavailable Eliu Jefferson MD Unavailable DropRosario martinez MD Unavailable Sara Patel MD Unavailable Florecita Vizcarra MD Unavailable DropRosario martinez MD Unavailable [phone] Antonieta Rosenberg APRN [facility] Unavailable + Crystal Baron MD Unavailable Sorin Barreto MD Unavailable [phone] Encounter Details Date Type Department Care Team (Late st Contact Info) Description 02/05/2020 MyC Medical Advice [facility] Surgical Weight Management [address] [facility] [address] 4th [place] [address] Kathy Floyd, RN 420 [facility] 195 [place] [address] Social History Tobacco Use Types Packs/Day Years [...] Out COVID-19 08/17/2021 08/17/2021 08/17/2021 8:20 AM FUND RAISER COVID-19 08/17/2021 08/17/2021 09/07/2021 11:3 9 PM FUND RAISER documented as of this encounter Care Teams Artillery Maintenance Supervisor Relationship Specialty Start Date End Date [address] [address] PCP - General 11/28/17 08/16/21 No Ref-Primary, Physician PCP - General 08/17/21 10/19/21 Deondre Palacios MD PCP - General Family Medicine 10/20/[address] [address] 08/17/21 Jesus Karievalencia Reilly, [facility] 9[address] [facility] [place] [address] Pharmacist Pharmacist 02/18/20 Eliu Jefferson MD [address] [facility] [place] [facility] [address] [place] [address] Assigned Surgical Provider 05/09/2008/22/21 Rosario Lozano MD [address] [place] [address] Assigned OBGYN Provider 01/23/22 Sara Patel MD [address] [place] [address] Assigned OBGYN Provider 01/30/22 Florecita Vizcarra MD [address] [place] [address] Assigned OBGYN Provider 02/27/22 Rosario Lozano MD [address] [place] [address] Assigned OBGYN Provider 03/06/2207/08 Antonieta Rosenberg APRN [employer] [address] [place] [address] Assigned PCP 02/17/22 08/27/22 Crystal Baron MD [address] [place] [address] Assigned OBGYN Provider 07/09/23 Sorin Barreto MD [address] [place] [address] Assigned OBGYN Provider 09/09/23 documented as of this encounter
--- OUTSIDE RECORDS SUMMARY | 2023-11-02 11:48 | XMS_ITS | Encounter Summary ---
Author Name Unknown Organization [place] Address [address] [place] [address] Care Team Providers Care Wind Field Service Manager Name Role Phone Deondre Palacios MD Primary Care Provider [facility] Unavailable Karie Lee [facility] Unavailable Rosario Lozano MD Unavailable Antonieta Rosenberg [facility] Unavailable + Crystal Baron MD Unavailable [phone] Sorin Barreto MD Unavailable Encounter Details Date Type Department Care Team (Late st Contact Info) Description 05/04/2022 [facility] [address] [place] [address] Abiola Keller Social History Tobacco Use Types Packs/Day Years Used Date Smoking Tobacco: Former Smokeless Tobacco: Never Snuff Comments:last tabacco use- a few days ago Alcohol Use Standard Drinks/Week Comments Not Currently 0 (1 standard drink = 0.6 oz pur e alcohol) PHQ-2 Answer Date Recorded PHQ-2 Score 0 03/16/2022 [place] Depression Scale Answer Date Recorded Last EPDS Total Score Not on file 03/28/2022 The thought of harming myself has occurred to me . Never 03/28/2022 Sex and Gender Information Value Date Recorded Sex Assigned at Not on file Gender Identity Female 01/08/2020 12:56 PM CDT Sexual Orientation Not on file documented as of this encounter Plan of Treatment Not on file documented as of this encounter Visit Diagnoses Not on filedocumented in this encounter Additional Health Concerns Assessment Noted Time PHQ-9 Depression Total Score: 10 022 10:00 AM CDT documented as of this encounter Care Teams Wind Field Service Manager Relationship Specialty Start Date End Date Deondre Palacios MD PCP - General Family Medicine 10/20/[address] [address] 08/17/21 [facility] [place], [place] [address] Pharmacist Pharmacist 02/18/20 Rosario Lozano MD [address] [facility] 700 [place] [address] Assigned OBGYN Provider 03/06/2207/08 Antonieta Rosenberg APRN TECHNICAL ASSOCIATE 5[address] [place] [address] Assigned PCP 02/17/22 08/27/22 Crystal Baron MD [address] [address] Assigned OBGYN Provider 07/09/23 Sorin Barreto MD [address] [facility] 400 [place] [address] Assigned OBGYN Provider 09/09/23 documented as of this encounter
--- OUTSIDE RECORDS SUMMARY | 2023-11-02 11:48 | XMS_ITS | Encounter Summary ---
Author Name Unknown Organization [place] Address [address] [place] [address] Care Team Providers Care Reference And Instruction Librarian Name Role Phone [facility] Primary Care Provider No Ref-Primary, Physician Primary Care Provider Deondre Palacios MD Primary Care Provider [facility] Unavailable Karie Lee [facility] Unavailable [phone] Eliu Jefferson MD Unavailable DropRosario martinez MD Unavailable Sara Patel MD Unavailable Florecita Vizcarra MD Unavailable DropRosario martinez MD Unavailable [phone] Antonieta Rosenberg APRN [facility] Unavailable + Crystal Baron MD Unavailable [phone] Sorin Barreto MD Unavailable [phone] Encounter Details Date Type Department Care Team (Late st Contact Info) Description 01/08/2020 MyC Medical Advice [facility] Surgical Weight Management [address] [facility] [address] 4th [place] [address] Tresa Pineda PA-C [address] [facility] 195 [place], [place] [address] Social History Tobacco Use Types Packs/Day Years [...] Out COVID-19 08/17/2021 08/17/2021 08/17/2021 8:20 AM DOOR TO 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 COVID-19 08/17/2021 08/17/2021 09/07/2021 11:3 9 PM DOOR TO DOOR 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 documented as of this encounter Care Teams Reference And Instruction Librarian Relationship Specialty Start Date End Date [address] [address] PCP - General 11/28/17 08/16/21 No Ref-Primary, Physician PCP - General 08/17/21 10/19/21 Deondre Palacios MD PCP - General Family Medicine 10/20/[address] [address] 08/17/21 Karie Lee, [facility] 909 [place] [address] Pharmacist Pharmacist 02/18/20 Eliu Jefferson MD 420 [facility] 195 [place] [address] Assigned Surgical Provider 05/09/2008/22/21 Rosario Lozano MD [address] [place] [address] Assigned OBGYN Provider 01/23/22 Sara Patel MD [address] [place] [address] Assigned OBGYN Provider 01/30/22 Florecita Vizcarra MD [address] [place] [address] Assigned OBGYN Provider 02/27/22 Rosario Lozano MD [address] [place] [address] Assigned OBGYN Provider 03/06/2207/08 Antonieta Rosenberg APRN [facility] 5[address] [place] [address] Assigned PCP 02/17/22 08/27/22 Crystal Baron MD [address] [place], [place] [address] Assigned OBGYN Provider 07/09/23 Sorin Barreto MD [address] [place] [address] Assigned OBGYN Provider 09/09/23 documented as of this encounter
--- OUTSIDE RECORDS SUMMARY | 2023-11-02 11:48 | XMS_ITS | Encounter Summary ---
Author Name Unknown Organization [place] Address [address] [place] [address] Care Team Providers Care Wood Shop Teacher Name Role Phone [facility] Primary Care Provider No Ref-Primary, Physician Primary Care Provider Deondre Palacios MD Primary Care Provider [facility] Unavailable Karie Lee [facility] Unavailable [phone] Eliu Jefferson MD Unavailable DropRosario martinez MD Unavailable Sara Patel MD Unavailable Florecita Vizcarra MD Unavailable DropRosario martinez MD Unavailable [phone] Antonieta Rosenberg APRN [facility] Unavailable + Crystal Baron MD Unavailable [phone] Sorin Barreto MD Unavailable Encounter Details Date Type Department Care Team (Late st Contact Info) Description 12/28/2017 Abstract [facility] [address] [facility] [place] [address] Outside, Provider care, subsequent in second trimester (Primary Dx) Social History Tobacco Use Types Packs/Day Years Used Date Smoking Tobacco: Every Day Cigarettes Smokeless Tobacco: Current Comments:1-2 per day with pr egnancy Alcohol Use Standard Drinks/Week Comments No 0 (1 standard drink = 0.6 oz pur e alcohol) Comments Yes Sex and Gender Information Value Date Recorded Sex Assigned at Not on file Gender Identity Female 01/08/2020 12:56 PM CDT Sexual Orientation Not on file documented as of this encounter Plan of Treatment Not on file documented as of this encounter Procedures Procedure Name Priority Date/Time Associated Diagnosis Comments HIV ANTIGEN ANTIBODY COMBO Routine 09/03/2017 care, subsequent in second trimester TREPONEMA ABS W REFLEX TO RPR AND TITER Routine 09/03/2017 care, subsequent in second trimester documented in this encounter Results * HIV Antigen Antibody Combo (09/03/2017) Pathologist [facility] HIV 1&2 Antibody Non Reactive Blood specimen (specimen) 09/03/2017 Antonieta Ugarte - 09/03/2017 #################################### This information has been abstracted from another report. ?? #################################### Date completed: 09/03/17 Group: [facility] Provider Outside LAB - BLOOD ORDERABL ES * Treponema Abs w Reflex to RPR and Titer (09/03/2017) Pathologist [facility] Treponema Antibodies Negative Blood specimen (specimen) 09/03/2017 Impressions Antonieta Quintanilla - 09/03/2017 #################################### This information has been abstracted from another report. ?? #################################### Date completed: 09/03/17 Group: [facility] Provider Outside LAB - BLOOD ORDERABL ES documented in this encounter Visit Diagnoses Diagnosis care, subsequent in second trimester- Primary documented in this encounter Additional Health Concerns Infection Onset Date Last Indicated Resolved Time Rule Out COVID-19 08/17/2021 08/17/2021 08/17/2021 8:20 AM ENTRY WRITER COVID-19 08/17/2021 08/17/2021 09/07/2021 11:3 9 PM ENTRY WRITER documented as of this encounter Care Teams Wood Shop Teacher Relationship Specialty Start Date End Date [facility] [address] [place] [address] PCP - General 11/28/17 08/16/21 No Ref-Primary, Physician PCP - General 08/17/21 10/19/21 Deondre Palacios MD PCP - General Family Medicine 10/20/21 [facility] [address] [place] [address] 08/17/21 Karie Lee [facility] [address] [place] [address] Pharmacist Pharmacist 02/18/20 Eliu Jefferson MD [address] [place] [address] Assigned Surgical Provider 05/09/2008/22/21 Rosario Lozano MD [address] [place] [address] Assigned OBGYN Provider 01/23/22 Sara Patel MD [address] [place] [address] Assigned OBGYN Provider 01/30/22 Florecita Vizcarra MD [address] [place] [address] Assigned OBGYN Provider 02/27/22 Rosario Lozano MD [address] [place] [address] Assigned OBGYN Provider 03/06/2207/08 Antonieta Rosenberg APRN [facility] [address] [place] [address] Assigned PCP 02/17/22 08/27/22 Crystal Baron MD [address] [place] [address] Assigned OBGYN Provider 07/09/23 Sorin Barreto MD [address] [place] [address] Assigned OBGYN Provider 09/09/23 documented as of this encounter
--- OUTSIDE RECORDS SUMMARY | 2023-11-02 11:48 | XMS_ITS | Encounter Summary ---
Author Name Unknown Organization [facility] Address [address] [place] [address] Care Team Providers Care Obstetrical Tech Name Role Phone [facility] Primary Care Provider No Ref-Primary, Physician Primary Care Provider Deondre Palacios MD Primary Care Provider [facility] Unavailable Karie Lee [facility] Unavailable Eliu Jefferson MD Unavailable DropRosario martinez MD Unavailable Sara Patel MD Unavailable Florecita Vizcarra MD Unavailable DropRosario martinez MD Unavailable [phone] Antonieta Rosenberg APRN [facility] Unavailable + Crystal Baron MD Unavailable [phone] Sorin Barreto MD Unavailable Encounter Details Date Type Department Care Team (Late st Contact Info) Description 01/08/2020 MyC Medical Advice [facility] Surgical Weight Management [address] [place] [address] Tresa Pineda PA-C [address] [facility] [address] [place], [place] [id number] Social History Tobacco Use Types Packs/Day Years [...] Out COVID-19 08/17/2021 08/17/2021 08/17/2021 8:20 AM FINGERPRINTER COVID-19 08/17/2021 08/17/2021 09/07/2021 11:3 9 PM FINGERPRINTER documented as of this encounter Care Teams Obstetrical Tech Relationship Specialty Start Date End Date [address] [address] PCP - General 11/28/17 08/16/21 No Ref-Primary, Physician PCP - General 08/17/21 10/19/21 Deondre Palacios MD PCP - General Family Medicine 10/20/[address] [address] 08/17/21 Karie Lee, [facility] [address] [place] [address] Pharmacist Pharmacist 02/18/20 Eliu Jefferson MD [address] [facility] [address] [place] [address] Assigned Surgical Provider 05/09/2008/22/21 Rosario Lozano MD [address] [place] [address] Assigned OBGYN Provider 01/23/22 Sara Patel MD [address] [place] [address] Assigned OBGYN Provider 01/30/22 Florecita Vizcarra MD [address] [place] [address] Assigned OBGYN Provider 02/27/22 Rosario Lozano MD [address] [place] [address] Assigned OBGYN Provider 03/06/2207/08 Antonieta Rosenberg APRN [facility] [address] [place] [address] Assigned PCP 02/17/22 08/27/22 Crystal Baron MD [address] [place], [place] [address] Assigned OBGYN Provider 07/09/23 Sorin Barreto MD [address] [place] [address] Assigned OBGYN Provider 09/09/23 documented as of this encounter
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
--- OUTSIDE RECORDS SUMMARY | 2023-11-02 11:49 | XMS_ITS ---
Author Name Unknown Organization [facility] Address [address] [place] [address] Care Team Providers Care Associate Buyer Name Role Phone Unavailable Unavailable Unavailable Surgery Details Not on file Complications Check Surgery Details section. Procedure Estimated Blood Loss Check Surgery Details section. Procedure Findings Check Surgery Details section. Procedure Specimens Taken Check Surgery Details section.
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
== END 2023-11-02 11:43 | disposition home or self-care (01) ==
PROVIDERS: PCP Family Medicine; Visit Provider Family Medicine
DX: R53.83 Other fatigue (principal); Z13.220 Encounter for screening for lipoid disorders; E66.01 Morbid (severe) obesity due to excess calories
CPT/HCPCS: 80048; 80061; 84443; 85025

== ENCOUNTER 2024-04-19 14:28 | Outpatient (REF) | payer BC, SELFPAY ==
--- OUTSIDE RECORDS SUMMARY | 2024-04-19 14:33 | XMS_ITS | Encounter Summary ---
Author Organization [facility] Address [address] [place] [address] Care Team Providers Care Sand Filler Name Role Phone [facility] Primary Care Provider No Ref-Primary, Physician Primary Care Provider Deondre Palacios MD Primary Care Provider [facility] Unavailable Karie Lee [facility] Unavailable Eliu Jefferson MD Unavailable DropRosario martinez MD Unavailable Sara Patel MD Unavailable [phone] Florecita Vizcarra MD Unavailable Rosario Lozano MD Unavailable [phone] Antonieta Rosenberg APRN EXTENSION AGENT Unavailable + Crystal Baron MD Unavailable [phone] Sorin Barreto MD Unavailable Encounter Details Date Type Department Care Team (Late st Contact Info) Description 01/08/2020 MyC Medical Advice [facility] Surgical Weight Management [address] [facility] [address] 4th [place] [address] Tresa Pineda PAErenC [address] [facility] [address] [place] [address] Social History Tobacco Use Types [...] Out COVID-19 08/17/2021 08/17/2021 08/17/2021 8:20 AM ENVIRONMENTAL MANAGER COVID-19 08/17/2021 08/17/2021 09/07/2021 11:3 9 PM ENVIRONMENTAL MANAGER documented as of this encounter Care Teams Sand Filler Relationship Specialty Start Date End Date [address] [address] PCP - General 11/28/17 08/16/21 No Ref-Primary, Physician PCP - General 08/17/21 10/19/21 Deondre Palacios MD PCP - General Family Medicine 10/20/[address] [address] 08/17/21 Karie Lee, [facility] [address] [place] [address] Pharmacist Pharmacist 02/18/20 Eliu Jefferson MD [address] [place] [address] [address] [place] [address] Assigned Surgical Provider 05/09/2008/22/21 Rosario Lozano MD [address] [place] [address] Assigned OBGYN Provider 01/23/22 Sara Patel MD [address] [place] [address] Assigned OBGYN Provider 01/30/22 Florecita Vizcarra MD [address] [place] [address] Assigned OBGYN Provider 02/27/22 Rosario Lozano MD [address] [place] [address] Assigned OBGYN Provider 03/06/2207/08 Antonieta Rosenberg APRN [facility] [address] [place] [address] Assigned PCP 02/17/22 08/27/22 Crystal Baron MD [address] [place] [address] Assigned OBGYN Provider 07/09/23 Sorin Barreto MD [address] [place], [place] [address] Assigned OBGYN Provider 09/09/23 documented as of this encounter
--- OUTSIDE RECORDS SUMMARY | 2024-04-19 14:33 | XMS_ITS | Encounter Summary ---
Author Organization [facility] Address [address] [place] [address] Care Team Providers Care Lead Oxide Mill Tender Name Role Phone [facility] Primary Care Provider No Ref-Primary, Physician Primary Care Provider Deondre Palacios MD Primary Care Provider [facility] Unavailable Karie Lee [facility] Unavailable [phone] Eliu Jefferson MD Unavailable [phone] DropRosario martinez MD Unavailable [phone] Sara Patel MD Unavailable [phone] Florecita Vizcarra MD Unavailable Rosario Lozano MD Unavailable [phone] Antonieta Rosenberg APRN BUSINESS MGR Unavailable + Crystal Baron MD Unavailable [phone] Sorin Barreto MD Unavailable Encounter Details Date Type Department Care Team (Late st Contact Info) Description 01/09/2020 MyC Medical Advice [facility] Medical Weight Management [address] [place] [address] Aleida Ribeiro Social History Tobacco Use [...] Out COVID-19 08/17/2021 08/17/2021 08/17/2021 8:20 AM OFFLINE EDITOR COVID-19 08/17/2021 08/17/2021 09/07/2021 11:3 9 PM OFFLINE EDITOR documented as of this encounter Care Teams Lead Oxide Mill Tender Relationship Specialty Start Date End Date [address] [address] PCP - General 11/28/17 08/16/21 No Ref-Primary, Physician PCP - General 08/17/21 10/19/21 Deondre Palacios MD PCP - General Family Medicine 10/20/[address] [address] 08/17/21 [facility] [address] [place] [address] Pharmacist Pharmacist 02/18/20 Eliu Jefferson MD [address] [place] [address] [address] [place] [address] Assigned Surgical Provider 05/09/2008/22/21 Rosario Lozano MD [address] [place] [address] Assigned OBGYN Provider 01/23/22 Sara Patel MD [address] [place] [address] Assigned OBGYN Provider 01/30/22 Florecita Vizcarra MD [address] [place] [address] Assigned OBGYN Provider 02/27/22 Rosario Lozano MD [address] [place] [address] Assigned OBGYN Provider 03/06/2207/08 Antonieta Rosenberg APRN [facility] [address] [place] [address] Assigned PCP 02/17/22 08/27/22 Crystal Baron MD [address] [place] [address] Assigned OBGYN Provider 07/09/23 Sorin Barreto MD [address] [address] Assigned OBGYN Provider 09/09/23 documented as of this encounter
--- OUTSIDE RECORDS SUMMARY | 2024-04-19 14:33 | XMS_ITS | Referral Summary ---
Author Organization [facility] Address [address] [place] [address] Care Team Providers Care Forester Aide Name Role Phone Deondre Palacios MD Primary Care Provider [facility] Unavailable [phone] Karie Lee [facility] Unavailable [phone] Allergies Active Allergy Reactions Criticality Noted Date [...] 5 Pertussis Antigens (DAPTACEL) ,05/01/1992,05/01/1992,02/20,1991 Flu 65+ (Fluad) 04/11/2012, 2,04/17/2011,04/07,04/15/2009,05/22/2008,06/14/2007 Flu, Unspecified 03/18/2012,02/16/2012 HIB (PRP-T) [...] Answer Date Recorded PHQ-2 Score 0 03/16/2022 [place] Depression Scale Answer Date Recorded Last EPDS [...] supervision of high risk young multigravida, antepartum from Last 3 Months or Most Recently [...] UM SPECIALTY CORE/PROT/ENDO UM Specialty Core/Prot/Endo [address] [facility] [address], [place] [address], [facility] [phone] from Last 3 Months or Most Recently Relevant to Health Maintenance Advance Directives For more information, please contact: [phone] * Full Code (Latest Code Status on File) Date Activated Date Inactivated Comments 03/24/2022 8:45 PM 03/28/2022 4:52 PM All basic and advanced life-sustaining interventions are performed as appropriate Question Answer Comments Code status determined by: Discussion with patie nt/ legal decision maker Care Teams Forester Aide Relationship Specialty Start Date End Date Deondre Palacios MD PCP - General Family Medicine 10/20/[address] [address] 08/17/21 Karie Lee, [facility] [address] [place] [address] Pharmacist Pharmacist 02/18/20
--- OUTSIDE RECORDS SUMMARY | 2024-04-19 14:33 | XMS_ITS | Clinical Summary ---
Author Organization [facility] Address [address] [place] [address] Care Team Providers Care Rotary Dump Operator Name Role Phone Deondre Palacios MD Primary Care Provider [phone] [facility] Unavailable [phone] Karie Lee [facility] Unavailable [phone] Allergies Active Allergy Reactions Criticality Noted Date [...] Answer Date Recorded PHQ-2 Score 0 03/16/2022 [place] Depression Scale Answer Date Recorded Last [...] of 2 - PCV) 04/09/2015 04/09/2014, 04/09/2014 PHQ-2 (once per calendar year) 2023 03/16/2022, 03/02/2022, 01/07/2022, Additional history exists COVID-19 Vaccine ( - season) 2024 INFLUENZA VACCINE (#1) 2024 9, 04/09/2014, 04/09/2014, Additional history exists PAP 11/12/2024 11/12/2021, 10/17, 10/25/2017 DTAP/TDAP/TD IMMUNIZATION (8 - Td or Tdap) 11/04/2031 11/03/2021, 02/01/2018, 08/20/2009, Additional history exists RSV VACCINE (1 - 1-dose 75+ series) 2066 HPV IMMUNIZATION Completed 06/14/2007, , 02/13/2007, Additional [...] UM SPECIALTY CORE/PROT/ENDO UM Specialty Core/Prot/Endo [address] [facility] [address] [address], [facility] [phone] from Last 3 Months or Most Recently Relevant to Health Maintenance Advance Directives For more information, please contact: [phone] * Full Code (Latest Code Status on File) Date Activated Date Inactivated Comments 03/24/2022 8:45 PM 03/28/2022 4:52 PM All basic and advanced life-sustaining interventions are performed as appropriate Question Answer Comments Code status determined by: Discussion with patie nt/ legal decision maker Care Teams Rotary Dump Operator Relationship Specialty Start Date End Date Deondre Palacios MD PCP - General Family Medicine 10/20/[address] [address] 08/17/21 Karie Lee, [facility] [address] [place] [address] Pharmacist Pharmacist 02/18/20
--- OUTSIDE RECORDS SUMMARY | 2024-04-19 14:33 | XMS_ITS | Encounter Summary ---
Author Organization [facility] Address [address] [place] [address] Care Team Providers Care Sales And Business Development Manager Name Role Phone [facility] Primary Care Provider No Ref-Primary, Physician Primary Care Provider Deondre Palacios MD Primary Care Provider [phone] [facility] Unavailable Karie Lee [facility] Unavailable Eliu Jefferson MD Unavailable DropRosario martinez MD Unavailable Sara Patel MD Unavailable [phone] Florecita Vizcarra MD Unavailable Rosario Lozano MD Unavailable [phone] Antonieta Rosenberg APRN LIFE TRAINER Unavailable + Crystal Baron MD Unavailable [phone] Sorin Barreto MD Unavailable [phone] Encounter Details Date Type Department Care Team (Late st Contact Info) Description 01/07/2020 MyC Medical Advice [facility] Medical Weight Management [address] [place] [address] Erendira Carter CMA Social History Tobacco [...] Out COVID-19 08/17/2021 08/17/2021 08/17/2021 8:20 AM CENTRALIZED TRAFFIC CONTROL OPERATOR COVID-19 08/17/2021 08/17/2021 09/07/2021 11:3 9 PM CENTRALIZED TRAFFIC CONTROL OPERATOR documented as of this encounter Care Teams Sales And Business Development Manager Relationship Specialty Start Date End Date [address] [address] PCP - General 11/28/17 08/16/21 No Ref-Primary, Physician PCP - General 08/17/21 10/19/21 Deondre Palacios MD PCP - General Family Medicine 10/20/[address] [address] 08/17/21 [facility] [address] [place] [address] Pharmacist Pharmacist 02/18/20 Eliu Jefferson MD [address] [place] [address] [address] [place] [address] Assigned Surgical Provider 05/09/2008/22/21 Rosario Lozano MD [address] [place] [address] Assigned OBGYN Provider 01/23/22 Sara Patel MD [address] [place] [address] Assigned OBGYN Provider 01/30/22 Florecita Vizcarra MD [address] [place] [address] Assigned OBGYN Provider 02/27/22 Rosario Lozano MD [address] [place] [address] Assigned OBGYN Provider 03/06/2207/08 Antonieta Rosenberg APRN [facility] [address] [place] [address] Assigned PCP 02/17/22 08/27/22 Crystal Baron MD [address] [place] [address] Assigned OBGYN Provider 07/09/23 Sorin Barreto MD [address] [address] Assigned OBGYN Provider 09/09/23 documented as of this encounter
--- OUTSIDE RECORDS SUMMARY | 2024-04-19 14:33 | XMS_ITS | Encounter Summary ---
Author Organization [facility] Address [address] [place] [address] Care Team Providers Care Movie Critic Name Role Phone [facility] Primary Care Provider No Ref-Primary, Physician Primary Care Provider Deondre Palacios MD Primary Care Provider [facility] Unavailable Karie Lee [facility] Unavailable Eliu Jefferson MD Unavailable [phone] DropRosario martinez MD Unavailable Sara Patel MD Unavailable [phone] Florecita Vizcarra MD Unavailable [phone] Rosario Lozano MD Unavailable [phone] Antonieta Rosenberg APRN SOLUTIONS SALES EXECUTIVE Unavailable + Crystal Baron MD Unavailable [phone] Sorin Barreto MD Unavailable Encounter Details Date Type Department Care Team (Late st Contact Info) Description 01/08/2020 MyC Medical Advice [facility] Surgical Weight Management [address] [facility] [address] 4th [place] [address] Tresa Pindea PAErenC [address] [facility] [address] [place] [address] Social History Tobacco Use Types [...] Out COVID-19 08/17/2021 08/17/2021 08/17/2021 8:20 AM FAMILY RESOURCE COORDINATOR COVID-19 08/17/2021 08/17/2021 09/07/2021 11:3 9 PM FAMILY RESOURCE COORDINATOR documented as of this encounter Care Teams Movie Critic Relationship Specialty Start Date End Date [address] [address] PCP - General 11/28/17 08/16/21 No Ref-Primary, Physician PCP - General 08/17/21 10/19/21 Deondre Palacios MD PCP - General Family Medicine 10/20/[address] [address] 08/17/21 Karie Lee, [facility] [address] [place] [address] Pharmacist Pharmacist 02/18/20 Eliu Jefferson MD [address] [place] [address] 195 [place] [address] Assigned Surgical Provider 05/09/2008/22/21 Rosario Lozano MD [address] [place] [address] Assigned OBGYN Provider 01/23/22 Sara Patel MD [address] [place] [address] Assigned OBGYN Provider 01/30/22 Florecita Vizcarra MD [address] [place] [address] Assigned OBGYN Provider 02/27/22 Rosario Lozano MD [address] [place] [address] Assigned OBGYN Provider 03/06/2207/08 Antonieta Rosenberg APRN [facility] [address] [place] [address] Assigned PCP 02/17/22 08/27/22 Crystal Baron MD [address] [place] [address] Assigned OBGYN Provider 07/09/23 Sorin Barreto MD [address] [place], [place] [address] Assigned OBGYN Provider 09/09/23 documented as of this encounter
--- OUTSIDE RECORDS SUMMARY | 2024-04-19 14:33 | XMS_ITS | Encounter Summary ---
Author Organization [facility] Address [address] [place] [address] Care Team Providers Care Burr Grinder Name Role Phone [facility] Primary Care Provider No Ref-Primary, Physician Primary Care Provider Deondre Palacios MD Primary Care Provider [facility] Unavailable Karie Lee [facility] Unavailable Eliu Jefferson MD Unavailable DropRosario martienz MD Unavailable [phone] Sara Patel MD Unavailable [phone] Florecita Vizcarra MD Unavailable [phone] Rosario Lozano MD Unavailable [phone] Antonieta Rosenberg APRN PLATEMAN Unavailable + Crystal Baron MD Unavailable [phone] Sorin Barreto MD Unavailable [phone] Encounter Details Date Type Department Care Team (Late st Contact Info) Description 01/08/2020 MyC Medical Advice [facility] Surgical Weight Management [address] [place] [phone] Alf Smith Social History Tobacco Use [...] Out COVID-19 08/17/2021 08/17/2021 08/17/2021 8:20 AM AUTOMAT CAR ATTENDANT COVID-19 08/17/2021 08/17/2021 09/07/2021 11:3 9 PM AUTOMAT CAR ATTENDANT documented as of this encounter Care Teams Burr Grinder Relationship Specialty Start Date End Date [address] [address] PCP - General 11/28/17 08/16/21 No Ref-Primary, Physician PCP - General 08/17/21 10/19/21 Deondre Palacios MD PCP - General Family Medicine 10/20/[address] [address] 08/17/21 Karie Lee, [facility] [address] [place] [address] Pharmacist Pharmacist 02/18/20 Eliu Jefferson MD [address] [place] [address] [address] [place] [address] Assigned Surgical Provider 05/09/2008/22/21 Rosario Lozano MD [address] [place] [address] Assigned OBGYN Provider 01/23/22 Sara Patel MD [address] [place] [address] Assigned OBGYN Provider 01/30/22 Florecita Vizcarra MD [address] [place] [address] Assigned OBGYN Provider 02/27/22 Rosario Lozano MD [address] [place] [address] Assigned OBGYN Provider 03/06/2207/08 Antonieta Rosenberg APRN [facility] [address] [place] [address] Assigned PCP 02/17/22 08/27/22 Crystal Baron MD [address] [place] [address] Assigned OBGYN Provider 07/09/23 Sorin Barreto MD [address] [address] Assigned OBGYN Provider 09/09/23 documented as of this encounter
--- OUTSIDE RECORDS SUMMARY | 2024-04-19 14:33 | XMS_ITS | Encounter Summary ---
Author Organization [place] Address [address] [place] [address] Care Team Providers Care Minute Clerk For Basic Traffic Name Role Phone [facility] Primary Care Provider No Ref-Primary, Physician Primary Care Provider Deondre Palacios MD Primary Care Provider [phone] [facility] Unavailable Karie Lee [facility] Unavailable Eliu Jefferson MD Unavailable [phone] DropRosario martinez MD Unavailable Sara Patel MD Unavailable [phone] Florecita Vizcarra MD Unavailable Rosario Lozano MD Unavailable [phone] Antonieta Rosenberg APRN ROLLER SKATE ASSEMBLER Unavailable + Crystal Baron MD Unavailable [phone] Sorin Barreto MD Unavailable [phone] Encounter Details Date Type Department Care Team (Late st Contact Info) Description 01/09/2020 MyC Medical Advice [facility] Surgical Weight Management [address] [facility] [address] 4th [place] [address] Tresa Pineda, PAErenC [address] [facility] 195 [place] [address] Social History Tobacco Use Types [...] Out COVID-19 08/17/2021 08/17/2021 08/17/2021 8:20 AM PAROLE DIRECTOR COVID-19 08/17/2021 08/17/2021 09/07/2021 11:3 9 PM PAROLE DIRECTOR documented as of this encounter Care Teams Minute Clerk For Basic Traffic Relationship Specialty Start Date End Date [address] [address] PCP - General 11/28/17 08/16/21 No Ref-Primary, Physician PCP - General 08/17/21 10/19/21 Deondre Palacios MD PCP - General Family Medicine 10/20/[address] [address] 08/17/21 Karie Lee, [facility] [address] [place] [address] Pharmacist Pharmacist 02/18/20 Eliu Jefferson MD [address] [place] [address] 195 [place] [address] Assigned Surgical Provider 05/09/2008/22/21 Rosario Lozano MD [address] [place] [address] Assigned OBGYN Provider 01/23/22 Sara Patel MD [address] [place] [address] Assigned OBGYN Provider 01/30/22 Florecita Vizcarra MD [address] [place] [address] Assigned OBGYN Provider 02/27/22 Rosario Lozano MD [address] [place] [address] Assigned OBGYN Provider 03/06/2207/08 Antonieta Rosenberg APRN [facility] [address] [place] [address] Assigned PCP 02/17/22 08/27/22 Crystal Baron MD [address] [place] [address] Assigned OBGYN Provider 07/09/23 Sorin Barreto MD [address] [place], [place] 46[address]64 Assigned OBGYN Provider 09/09/23 documented as of this encounter
--- OUTSIDE RECORDS SUMMARY | 2024-04-19 14:33 | XMS_ITS | Encounter Summary ---
Author Organization [place] Address [address] [place] [address] Care Team Providers Care Fashion Designer Name Role Phone [facility] Primary Care Provider No Ref-Primary, Physician Primary Care Provider Deondre Palacios MD Primary Care Provider [facility] Unavailable Karie Lee [facility] Unavailable Eliu Jefferson MD Unavailable [phone] DropRosario martinez MD Unavailable aSra Patel MD Unavailable [phone] Florecita Vizcarra MD Unavailable Rosario Lozano MD Unavailable [phone] Antonieta Rosenberg APRN HEALTH AND WELLNESS SALES CONSULTANT Unavailable + Crystal Baron MD Unavailable [phone] Sorin Barreto MD Unavailable [phone] Encounter Details Date Type Department Care Team (Late st Contact Info) Description 12/28/2017 [facility] [place] [address] [facility] [address], 2ND [place] [address] Outside, Provider care, subsequent in second trimester [...] * HIV Antigen Antibody Combo (09/03/2017) Pathologist [facility] HIV 1&2 Antibody Non Reactive Blood specimen (specimen) 09/03/2017 Antonieta Ugarte - 09/03/2017 #################################### This information has been abstracted from another report. ?? #################################### Date completed: 09/03/17 Group: [facility] Provider Outside LAB - BLOOD ORDERABL ES * Treponema Abs w Reflex to RPR and Titer (09/03/2017) Treponema Antibodies Negative Blood specimen (specimen) 09/03/2017 Impressions Antonieta Quintanilla - 09/03/2017 #################################### This information has been abstracted from another report. ?? #################################### Date completed: 09/03/17 Group: [facility] Provider Outside LAB - BLOOD ORDERABL ES documented in this encounter Visit Diagnoses Diagnosis care, subsequent in second trimester- Primary documented in this encounter Additional Health Concerns Infection Onset Date Last Indicated Resolved Time Rule Out COVID-19 08/17/2021 08/17/2021 08/17/2021 8:20 AM CAMPUS SUPERVISOR COVID-19 08/17/2021 08/17/2021 09/07/2021 11:3 9 PM CAMPUS SUPERVISOR documented as of this encounter Care Teams Fashion Designer Relationship Specialty Start Date End Date [facility] [address] [place] [address] PCP - General 11/28/17 08/16/21 No Ref-Primary, Physician PCP - General 08/17/21 10/19/21 Deondre Palacios MD PCP - General Family Medicine 10/20/21 [facility] [address] [place] [address] 08/17/21 Karie Lee, [facility] [address] [place] [address] 694505 Pharmacist Pharmacist 02/18/20 Eliu Jefferson MD [address] [place] [address] Assigned Surgical Provider 05/09/2008/22/21 Rosario Lozano MD [address] [place] [address] Assigned OBGYN Provider 01/23/22 Sara Patel MD [address] [place] [address] Assigned OBGYN Provider 01/30/22 Florecita Vizcarra MD [address] [place] [address] Assigned OBGYN Provider 02/27/22 Rosario Lozano MD [address] [place] [address] Assigned OBGYN Provider 03/06/2207/08 Antonieta Rosenberg APRN [facility] 909 [place] [address] Assigned PCP 02/17/22 08/27/22 Crystal Baron MD [address] [place] [address] Assigned OBGYN Provider 07/09/23 Sorin Barreto MD [address] [place] [address] Assigned OBGYN Provider 09/09/23 documented as of this encounter
--- OUTSIDE RECORDS SUMMARY | 2024-04-19 14:33 | XMS_ITS | Encounter Summary ---
Author Organization [facility] Address [address] [place] [address] Care Team Providers Care Nephrology Social Worker Name Role Phone System, Provider Not In Primary Care Provider Un available [facility] Primary Care Provider No Ref-Primary, Physician Primary Care Provider Deondre Palacios MD Primary Care Provider [facility] Unavailable Karie Lee [facility] Unavailable Eliu Jefferson MD Unavailable [phone] DropRosario martinez MD Unavailable Sara Patel MD Unavailable [phone] Florecita Vizcarra MD Unavailable [phone] DropRosario martinez MD Unavailable [phone] Antonieta Rosenberg APRN [facility] Unavailable + Crystal Baron MD Unavailable [phone] Sorin Barreto MD Unavailable Reason for Referral * - Closed Specialty Diagnoses / Procedures Referred By Salomón vasquez Referred To Contact Diagnoses related condition, antepartum Naheed Poon [facility] [address] [place] [address] Referral ID Status Reason Start Date Expiration Date Visits Re quested Visits Authorized [id number] Closed 10/26/2017 10/26/2018 1 1 Question Answer MFM Location [facility] 03/24/2018 Ultrasound Comprehensive US (>than 18 weeks GA) US PROC NONE MFM Issue Maternal Medical Condition (enter details in Comments) MFM Consultation (unrelated to Ultrasound findings) Yes (enter details in Comments) - Obesity BMI 50.6, hx asthma, hx migraines, hx meth abuse-transfer of care Genetic Counseling Consultation: No fax [facility] Naheed Poon [phone] Comments >> Patient may proceed with recommendations [...] where they were done to arrange for berry picker prior to your scheduled appointment. Any new CT, MRI or other procedures ordered by your specialist must be performed at a [facility] facility or coordinated by your clinic's referral office. >> List of current medications >> This referral request >> Any documents/labs given to you for this referral Encounter Details Date Type Department Care Team (Late st Contact Info) Description 10/26/2017 Orders Only [facility] [place] [address] [facility] [address] [place] [address] José MiguelpilarOctober [facility] [address] [place] [address] related condition, antepartum (Primary Dx) Social History [...] Out COVID-19 08/17/2021 08/17/2021 08/17/2021 8:20 AM CREATIVE DESIGNER COVID-19 08/17/2021 08/17/2021 09/07/2021 11:3 9 PM CREATIVE DESIGNER documented as of this encounter Care Teams Nephrology Social Worker Relationship Specialty Start Date End Date System, Provider Not In PCP - General Clinic 09/02/17 11/27/[address] [address] PCP - General 11/28/17 08/16/21 No Ref-Primary, Physician PCP - General 08/17/21 10/19/21 Deondre Palacios MD PCP - General Family Medicine 10/20/[address] [address] 08/17/21 Karie Lee [facility] [address] [place] [address] Pharmacist Pharmacist 02/18/20 Eliu Jefferson MD [address] [facility] 195 [place] [address] Assigned Surgical Provider 05/09/2008/22/21 Rosario Lozano MD [address] [place] [address] Assigned OBGYN Provider 01/23/22 Sara Patel MD [address] [place] [address] Assigned OBGYN Provider 01/30/22 Florecita Vizcarra MD [address] [place] [address] Assigned OBGYN Provider 02/27/22 Rosario Lozano MD [address] [place] [address] Assigned OBGYN Provider 03/06/2207/08 Antonieta Rosenberg APRN [facility] [address] [place] [address] Assigned PCP 02/17/22 08/27/22 Crystal Baron MD [address] [place] [address] Assigned OBGYN Provider 07/09/23 Sorin Barreto MD [address] [address] Assigned OBGYN Provider 09/09/23 documented as of this encounter
--- OUTSIDE RECORDS SUMMARY | 2024-04-19 14:33 | XMS_ITS | Encounter Summary ---
Author Organization [place] Address [address] [place] [address] Care Team Providers Care Delivery Merchandiser Name Role Phone System, Provider Not In Primary Care Provider Un available [facility] Primary Care Provider No Ref-Primary, Physician Primary Care Provider Deondre Palacios MD Primary Care Provider [facility] Unavailable Karie Lee [facility] Unavailable Eliu Jefferson MD Unavailable DropRosario martinez MD Unavailable [phone] Sara Patel MD Unavailable [phone] Florecita Vizcarra MD Unavailable [phone] DropRosario martinez MD Unavailable [phone] Antonieta Rosenberg APRN [facility] Unavailable + Crystal Baron MD Unavailable [phone] Sorin Barreto MD Unavailable [phone] Reason for Referral * - Closed Specialty Diagnoses / Procedures Referred By Salomón vasquez Referred To Contact Diagnoses Morbid obesity (H) History of methamphetamine abuse (H) Asthma Migraine [facility] [address] [place] [address] Referral ID Status Reason Start Date Expiration Date Visits Re quested Visits Authorized [id number] Closed 10/27/2017 10/27/2018 1 1 Question Answer MFM Consult Yes Comments Level 2 U/S and MFM consult in consult clinic Encounter Details Date Type Department Care Team (Late st Contact Info) Description 10/27/2017 Orders Only [facility] [place] [address] [place] [address] Sara Padron RN Morbid obesity [...] Out COVID-19 08/17/2021 08/17/2021 08/17/2021 8:20 AM 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 COVID-19 08/17/2021 08/17/2021 09/07/2021 11:3 9 PM 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 documented as of this encounter Care Teams Delivery Merchandiser Relationship Specialty Start Date End Date System, Provider Not In PCP - General Clinic 09/02/17 11/27/17 [facility] [address] [place] [address] PCP - General 11/28/17 08/16/21 No Ref-Primary, Physician PCP - General 08/17/21 10/19/21 Deondre Palacios MD PCP - General Family Medicine 10/20/21 [facility] [address] [place] [address] 08/17/21 Karie Lee, [facility] 9[address] [place], [place] [address] Pharmacist Pharmacist 02/18/20 Eliu Jefferson MD [address] [facility] 195 [place] [address] Assigned Surgical Provider 05/09/2008/22/21 Rosario Lozano MD [address] [place] [address] Assigned OBGYN Provider 01/23/22 Sara Patel MD [address] [place], [place] [address] Assigned OBGYN Provider 01/30/22 Florecita Vizcarra MD [address] [place] [address] Assigned OBGYN Provider 02/27/22 Rosario Lozano MD [address] [place], [place] [address] Assigned OBGYN Provider 03/06/2207/08 Antonieta Rosenberg APRN [facility] 9[address] [place], [place] [address]69[address] Assigned PCP 02/17/22 08/27/22 Crystal Baron MD [address] [place], [place] [address]44 Assigned OBGYN Provider 07/09/23 Sorin Barreto MD [address] [place] [address] Assigned OBGYN Provider 09/09/23 documented as of this encounter
--- OUTSIDE RECORDS SUMMARY | 2024-04-19 14:33 | XMS_ITS | Encounter Summary ---
Author Organization [place] Address [address] [place] [address] Care Team Providers Care Brush Machine Setter Name Role Phone [facility] Primary Care Provider No Ref-Primary, Physician Primary Care Provider Deondre Palacios MD Primary Care Provider [facility] Unavailable [phone] Karie Lee [facility] Unavailable Eliu Jefferson MD Unavailable DropRosario martinez MD Unavailable [phone] Sara Patel MD Unavailable [phone] Florecita Vizcarra MD Unavailable Rosario Lozano MD Unavailable [phone] Antonieta Rosenberg APRN INSULATION NOZZLEMAN Unavailable + Crystal Baron MD Unavailable [phone] Sorin Barreto MD Unavailable Encounter Details Date Type Department Care Team (Late st Contact Info) Description 01/08/2020 MyC Medical Advice [facility] Surgical Weight Management [address] [facility] [address] 4th [place] [address] Tresa Pineda PAErenC [address] [facility] [address] [place] [address] Social History Tobacco Use Types [...] Out COVID-19 08/17/2021 08/17/2021 08/17/2021 8:20 AM PRECISION MILLWRIGHT COVID-19 08/17/2021 08/17/2021 09/07/2021 11:3 9 PM PRECISION MILLWRIGHT documented as of this encounter Care Teams Brush Machine Setter Relationship Specialty Start Date End Date [address] [address] PCP - General 11/28/17 08/16/21 No Ref-Primary, Physician PCP - General 08/17/21 10/19/21 Deondre Palacios MD PCP - General Family Medicine 10/20/[address] [address] 08/17/21 Karie Lee, [facility] [address] [place] [address] Pharmacist Pharmacist 02/18/20 Eliu Jefferson MD [address] [place] [address] 195 [place] [address] Assigned Surgical Provider 05/09/2008/22/21 Rosario Lozano MD [address] [place] [address] Assigned OBGYN Provider 01/23/22 Sara Patel MD [address] [place] [address] Assigned OBGYN Provider 01/30/22 Florecita Vizcarra MD [address] [place] [address] Assigned OBGYN Provider 02/27/22 Rosario Lozano MD [address] [place] [address] Assigned OBGYN Provider 03/06/2207/08 Antonieta Rosenberg APRN [facility] [address] [place] [address] Assigned PCP 02/17/22 08/27/22 Crystal Baron MD [address] [place] [address] Assigned OBGYN Provider 07/09/23 Sorin Barreto MD [address] [place], [place] 0[address]14 Assigned OBGYN Provider 09/09/23 documented as of this encounter
--- OUTSIDE RECORDS SUMMARY | 2024-04-19 14:33 | XMS_ITS | Encounter Summary ---
Author Organization [facility] Address [address] [place] [address]. [place] [address] Care Team Providers Care Painter Assistant Name Role Phone Deondre Palacios MD Primary Care Provider [facility] Unavailable [phone] Karie Lee [facility] Unavailable [phone] Rosario Lozano MD Unavailable Antonieta Rosenberg APRN [facility] Unavailable + Crystal Baron MD Unavailable Sorin Barreto MD Unavailable Encounter Details Date Type Department Care Team (Late st Contact Info) Description 05/04/2022 [facility] [address] [place] [address] Abiola Keller Social History Tobacco Use Types Packs/Day Years Used Date Smoking Tobacco: Former Smokeless Tobacco: Never Snuff Comments:last tabacco use- a few days ago Alcohol Use Standard Drinks/Week Comments Not Currently 0 (1 standard drink = 0.6 oz pur e alcohol) PHQ-2 Answer Date Recorded PHQ-2 Score 0 03/16/2022 [place] Depression Scale Answer Date Recorded Last EPDS [...] documented as of this encounter Care Teams Painter Assistant Relationship Specialty Start Date End Date Deondre Palacios MD PCP - General Family Medicine 10/20/[address] [address] 08/17/21 [facility] [address] [place] [id number] Pharmacist Pharmacist 02/18/20 Rosario Lozano MD [address] [facility] [address] [address] Assigned OBGYN Provider 03/06/2207/08 Antonieta Rosenberg APRN CNP 909 [place], [place] 6[address] Assigned PCP 02/17/22 08/27/22 Crystal Baron MD [address] 847834 Assigned OBGYN Provider 07/09/23 Sorin Barreto MD [address] [facility] 400 [place] [address] Assigned OBGYN Provider 09/09/23 documented as of this encounter
--- OUTSIDE RECORDS SUMMARY | 2024-04-19 14:33 | XMS_ITS | Encounter Summary ---
Author Organization [place] Address [address] [place] [address] Care Team Providers Care Pot Room Supervisor Name Role Phone [facility] Primary Care Provider No Ref-Primary, Physician Primary Care Provider Deondre Palacios MD Primary Care Provider [facility] Unavailable Karie Lee [facility] Unavailable Eliu Jefferson MD Unavailable [phone] DropRosario martinez MD Unavailable Sara Patel MD Unavailable [phone] Florecita Vizcarra MD Unavailable Rosario Lozano MD Unavailable [phone] Antonieta Rosenberg APRN [employer] BLOCKMAK[employer] Unavailable + Crystal Baron MD Unavailable [phone] Sorin Barreto MD Unavailable Encounter Details Date Type Department Care Team (Late st Contact Info) Description 02/05/2020 MyC Medical Advice [facility] Surgical Weight Management [address] [facility] [address] 4th [place] [address] Kathy Floyd, RN [address] [facility] 195 [place], [place] 7[address] Social History Tobacco Use Types Packs/Day Years [...] Out COVID-19 08/17/2021 08/17/2021 08/17/2021 8:20 AM OVEN WORKER COVID-19 08/17/2021 08/17/2021 09/07/2021 11:3 9 PM OVEN WORKER documented as of this encounter Care Teams Pot Room Supervisor Relationship Specialty Start Date End Date [address] [address] PCP - General 11/28/17 08/16/21 No Ref-Primary, Physician PCP - General 08/17/21 10/19/21 Deondre Palacios MD PCP - General Family Medicine 10/20/[address] [address] 08/17/21 Karie Lee, [facility] [address] [place] [address] Pharmacist Pharmacist 02/18/20 Eliu Jefferson MD [address] [place] [address] 195 [place] [address] Assigned Surgical Provider 05/09/2008/22/21 Rosario Lozano MD [address] [place] [address] Assigned OBGYN Provider 01/23/22 Sara Patel MD [address] [place] [address] [place] [address] Assigned OBGYN Provider 01/30/22 Florecita Vizcarra MD [address] [place] [address] Assigned OBGYN Provider 02/27/22 Rosario Lozano MD [address] [place] [address] Assigned OBGYN Provider 03/06/2207/08 Antonieta Rosenberg APRN [employer] [address] [place] [address] Assigned PCP 02/17/22 08/27/22 Crystal Baron MD [address] [place] [address] Assigned OBGYN Provider 07/09/23 Sorin Barreto MD [address] [place] [address] Assigned OBGYN Provider 09/09/23 documented as of this encounter
--- OUTSIDE RECORDS SUMMARY | 2024-04-19 14:33 | XMS_ITS | Encounter Summary ---
Author Organization [place] Address [address] [place] [address] Care Team Providers Care Traffic Inspector Name Role Phone [facility] Primary Care Provider No Ref-Primary, Physician Primary Care Provider Deondre Palacios MD Primary Care Provider [facility] Unavailable Karie Lee [facility] Unavailable Eliu Jefferson MD Unavailable [phone] DropRosario martinez MD Unavailable Sara Patel MD Unavailable [phone] Florecita Vizcarra MD Unavailable Rosario Lozano MD Unavailable [phone] Antonieta Rosenberg APRN MIXER RUNNER Unavailable + Crystal Baron MD Unavailable [phone] Sorin Barreto MD Unavailable Encounter Details Date Type Department Care Team (Late st Contact Info) Description 01/08/2020 MyC Medical Advice [facility] Surgical Weight Management [address] [facility] [address] 4th [place] [address] Tresa Pineda PAErenC [address] [facility] 195 [place] [address] Social History Tobacco Use Types [...] Out COVID-19 08/17/2021 08/17/2021 08/17/2021 8:20 AM ASSISTANT FOREMAN COVID-19 08/17/2021 08/17/2021 09/07/2021 11:3 9 PM ASSISTANT FOREMAN documented as of this encounter Care Teams Traffic Inspector Relationship Specialty Start Date End Date [address] [address] PCP - General 11/28/17 08/16/21 No Ref-Primary, Physician PCP - General 08/17/21 10/19/21 Deondre Palacios MD PCP - General Family Medicine 10/20/[address] [address] 08/17/21 Karie Lee, [facility] [address] [place] [address] Pharmacist Pharmacist 02/18/20 Eliu Jefferson MD [address] [place] [address] 195 [place] [address] Assigned Surgical Provider 05/09/2008/22/21 Rosario Lozano MD [address] [place] [address] Assigned OBGYN Provider 01/23/22 Sara Patel MD [address] [place] [address] Assigned OBGYN Provider 01/30/22 Florecita Vizcarra MD [address] [place] [address] Assigned OBGYN Provider 02/27/22 Rosario Lozano MD [address] [place] [address] Assigned OBGYN Provider 03/06/2207/08 Antonieta Rosenberg APRN [facility] [address] [place] [address] Assigned PCP 02/17/22 08/27/22 Crystal Baron MD [address] [place] [address] Assigned OBGYN Provider 07/09/23 Sorin Barreto MD [address] [place], [place] [address] Assigned OBGYN Provider 09/09/23 documented as of this encounter
[2024-04-19 16:51] LABS: Basophils Absolute Auto 0.05 K/uL (0.00-0.30); Basophils Percent Auto 0.6 % (0.0-3.0); Eosinophils Absolute Auto 0.12 K/uL (0.00-0.50); Eosinophils Percent Auto 1.5 % (0.0-7.0); Hemoglobin* 13.6 gm/dL (12.0-16.0); Lymphocytes Absolute Auto 3.39 K/uL (0.90-2.90); Lymphocytes Percent Auto 42.5 % (20-44); Mean Corpuscular HGB Conc 32 gm/dL (32-36); Mean Corpuscular Hemoglobin 29 pg (26-34); Mean Corpuscular Volume 89 fL (80-100); Monocytes Percent Auto 5.5 % (0.0-11.0); Neutrophils Absolute Auto 3.97 K/uL (1.7-7.0); Neutrophils Percent Auto 49.9 % (42.0-72.0); Platelet Count* 487 K/uL (140-440); RDW Coefficient of Variation % 12.8 % (11.5-15.5); Red Blood Count 4.74 m/uL (4.00-5.20); White Blood Count* 7.97 K/uL (4.50-11.00)
[2024-04-19 16:52] LABS: Chloride* 106 mmol/L (96-114); Sodium* 139 mmol/L (135-149)
[2024-04-19 16:53] LABS: Slide Review Reflex No
[2024-04-19 16:54] LABS: Appearance Urine Clear (Clear); Bilirubin Urine Negative (Negative); Blood Urine Negative (Negative); Color Urine Yellow (Yellow); Creatinine* 0.5 mg/dL (0.5-1.5); Estimated Glomerular Filt Rate 128 ml/min; Glucose Urine Negative (Negative); Ketones Urine Negative (Negative); Leukocyte Esterase Urine Negative (Negative); Nitrite Urine Negative (Negative); Protein Urine Negative (Negative); Specific Gravity Urine >= 1.030 (1.000-1.030); Urobilinogen Urine 0.2 (0.2-1.0)
[2024-04-19 16:55] LABS: Alanine Aminotransferase* 22 U/L (4-35); Anion Gap 8 mEq/L (7-15); Aspartate Amino Transferase* 28 U/L (12-35); Blood Urea Nitrogen* 6 mg/dL (5-24); Calcium* 9.6 mg/dL (8.4-10.6); Carbon Dioxide* 25 mmol/L (20-32); Glucose* 103 mg/dL (60-115); Ur HCG Qualitative* Negative (Negative)
[2024-04-21 12:48] LABS: Rapid Plasma Reagin (RPR) Non Reactive (Non Reactive)
== END 2024-04-19 14:29 | disposition home or self-care (01) ==
LOC: NPINS 14:28
PROVIDERS: Nurse Practitioner Family; PCP Family Medicine
DX: M54.50 Low back pain, unspecified (principal); R73.03 Prediabetes; E66.01 Morbid (severe) obesity due to excess calories; Z86.39 Personal history of other endocrine, nutritional and metabolic disease; Z68.43 Body mass index [BMI] 50.0-59.9, adult; F11.10 Opioid abuse, uncomplicated; Z11.3 Encounter for screening for infections with a predominantly sexual mode of transmission; F32.9 Major depressive disorder, single episode, unspecified; J45.20 Mild intermittent asthma, uncomplicated
CPT/HCPCS: 80048; 81003; 81025; 84450; 84460; 85025; 86592